=== PATIENT | female | born 1955 | race Caucasian/White ===

== ENCOUNTER → 2019-12-08 | Outpatient (REF) | payer OTHER | LOC: M LAB REF 13:50 | PROVIDERS: ATTEND Internal Medicine | DX: H66.91 Otitis media, unspecified, right ear (principal) ==

== ENCOUNTER → 2020-03-16 | Outpatient (CLI) | payer BC, OTHER ==
--- NOTE | 2020-03-16 16:28 | REPVR ---
PROCEDURE INFORMATION: Exam: CT Temporal Bones Without Contrast. Exam date and time: 03/16/2020 3:07 PM Age: 64 years old Clinical indication: Other: Otitis; Additional info: Otalgia/ otitis externa RT ear TECHNIQUE: Imaging protocol: Computed tomography images of the temporal bones without contrast. Radiation optimization: All CT scans at this facility use at least one of these dose optimization techniques: automated exposure control; mA and/or kV adjustment per patient size (includes targeted exams where dose is matched to clinical indication); or iterative reconstruction. COMPARISON: No relevant prior studies available. FINDINGS: Right inner ear: Normal. Right ossicles and middle ear: The middle ear ossicles appear intact however the bony erosion of the anterior margin of the middle ear cavity is replaced by soft tissue density material which extends to the anterior margin of the head of the malleus, series 202 images 44-47. The remainder of the right middle ear cavity is clear. Right external auditory canal: Soft tissue density material fills the anterior and deep margins of the external auditory canal. Right facial nerve canal: Normal. Right jugular foramen: No jugular dehiscence. Right carotid canal: No aberrent carotid canal; no bony erosion. Right mastoid air cells: Soft tissue density material in the anterior, superior mastoid air cells which are eroded. Right temporomandibular joint: There is bony erosion of the temporal portion of the temporomandibular joint on the right which also forms the bony anterior margin of the right external auditory canal and extends into the petrous portion of the right temporal bone involving the anterior, superior mastoid air cells and anterior margin of the right middle ear cavity and eroding into the inferior right middle cranial fossa. Left inner ear: Normal. Left ossicles and middle ear: Normal. The middle ear ossicles are intact. Left external auditory canal: Normal. Left facial nerve canal: Normal. Left jugular foramen: No jugular dehiscence. Left carotid canal: No aberrent carotid canal. Left mastoid air cells: Normal. No mastoid effusions. There are several calcifications within or adjacent to the cartilage of both ears. There is soft tissue stranding in the right perirectal air region and external auditory canal IMPRESSION: There is extensive erosion of the temporal bone including posterior margin of the right temporomandibular joint/anterior margin external auditory canal and the petrous portion with extension into the inferior lateral right middle cranial fossa. The right ossicles are not eroded however abnormal soft tissue density material appears directly adjacent to the anterior margin of the head of the malleus filling the anterior aspect of the right middle ear cavity. Soft tissue density material fills the anterior superior right mastoid air cells which are eroded. Findings are most likely due to infection however tumor is within the differential. Due to lack of intravenous contrast possible involvement of the right temporal lobe is not well assessed. Electronically signed by: Sheri Rodríguez On 03/16/2020 16:27:55 PM
== END ==
LOC: M RAD 14:51
PROVIDERS: ATTEND Specialist
DX: R93.89 Abnormal findings on diagnostic imaging of other specified body structures (principal); H92.01 Otalgia, right ear; H60.91 Unspecified otitis externa, right ear

== ENCOUNTER → 2020-03-22 | Outpatient (REF) | payer OTHER | LOC: M LAB REF 12:04 | PROVIDERS: ATTEND Specialist | DX: H60.91 Unspecified otitis externa, right ear (principal) ==

== ENCOUNTER → 2020-04-08 | Outpatient (CLI) | payer BC, OTHER ==
[~2020-04-08] MED LIST: PROHANCE 279.3MG/ML 15ML VIAL As Ordered ONE
--- NOTE | 2020-04-08 17:08 | REPVR ---
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 Contrast material: PROHANCE; Contrast volume: 13 ml; Contrast route: 22G; COMPARISON: CT IAC W/O CONTRAST 03/16/2020 3:16 PM FINDINGS: Brain: No restricted diffusion is seen to suggest acute infarction. There is no acute intracranial hemorrhage, cerebral edema, mass effect, or midline shift. Age-related cerebral and cerebellar substance loss is present. Scattered increased T2 and FLAIR signal within the periventricular and subcortical white matter is present. This is nonspecific but likely related to chronic microangiopathic ischemic change. Ventricles: No hydrocephalus. Bones/joints: As noted on the recent temporal bone CT, there is a destructive process centered around the right temporomandibular joint. Infection is favored, but malignancy is not excluded. Fine bony detail in this area is better visualized on the CT. Dehiscence of the bone the right temporomandibular joint from the right middle cranial fossa is present. Enhancing soft tissue is noted within this area. Mild dural and leptomeningeal enhancement is noted along the undersurface of the right temporal lobe. There is no seated parenchymal enhancement or edema. Soft tissues: A nonspecific enhancing 15 mm mass is noted along the inferior medial aspect of the left parotid gland. Additionally, there is a 13 mm enhancing lesion within the deep right parotid gland. Benign and malignant parotid tumors are possible. Sinuses: Normal as visualized. No acute sinusitis. Mastoid air cells: Normal as visualized. No mastoid effusion. Orbits: Unremarkable. IMPRESSION: 1. Destructive process centered around the right temporomandibular joint. Infection is favored. Malignancy is less likely. Minor intracranial extension is present. Dural and leptomeningeal enhancement is noted along the undersurface of the right temporal lobe. 2. Nonspecific bilateral parotid masses. Benign and malignant parotid tumors are possible. Electronically signed by: John Ching On 04/08/2020 17:07:31 PM
== END ==
LOC: M RAD 14:44
PROVIDERS: ATTEND Otolaryngology
DX: K11.8 Other diseases of salivary glands (principal); H92.11 Otorrhea, right ear; C41.0 Malignant neoplasm of bones of skull and face
CPT/HCPCS: 70553; A9576

== ENCOUNTER → 2020-11-30 | Outpatient (CLI) | payer BC, OTHER ==
--- NOTE | 2020-11-30 15:35 | REP ---
INDICATION: CANCER OF THE EAR. 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 COMPARISON: Comparison MRI study is from April 08, 2020. Comparison CT study is from March 16, 2020.. TECHNIQUE: Pre and postcontrast MR imaging is included. Thin sections are obtained through the petrous bones and posterior fossa with T1 and T2 weighted sequences include spin echo, turbo spin echo, FLAIR, diffusion-weighted scans, and thin section gradient echo sequences. Postcontrast imaging is performed in all 3 planes. The gadolinium enhancement dose is 11 mL of intravenous ProHance. FINDINGS: In the interval since the prior exams, the patient has undergone extensive resection. This apparently includes right parotidectomy, partial mastoidectomy and resection of the external auditory canal on the right and apparently, portion of the right temporal bone and floor of the right middle cranial fossa. There is transplanted fatty tissue at the operative site. The right mandibular condyle was resected as well. There is micrometallic artifact adjacent to the mandibular condylar resection margin and at the level of the remaining right temporalis and masseter muscles. The remaining right mastoid air cells are filled with intermediate signal intensity material. The internal auditory canals are unremarkable and symmetric. The vestibular and cochlear apparatus are unremarkable bilaterally. It appears that the middle ear structures have been resected on the right. No other evidence of bone destruction is seen. No right-sided mass effect is observed. There is again noted to be a heterogeneously enhancing mass in the left parotid gland. This measures 2.4 cm craniocaudal by 1.8 cm medial to lateral by 1.4 cm anterior to posterior. Postcontrast imaging shows no vascular abnormality. Sigmoid sinuses appear patent bilaterally. No abnormal intracranial contrast enhancement is seen to suggest metastatic disease. Subcortical and periventricular white matter T2 hyperintensities persist consistent with small-vessel atherosclerotic change. Diffusion-weighted scans show no evidence of restricted diffusion to suggest acute ischemia, abscess, or neoplastic restricted diffusion. No intraorbital abnormality is seen. IMPRESSION: Extensive postoperative changes on the right as noted above. No evidence of residual or recurrent neoplasm. Soft no evidence of intracranial metastatic disease. Small vessel atherosclerotic changes. Persistent left parotid mass lesion consistent with benign or malignant etiologies. <Electronically signed by Diomedes Flores > 11/30/20 [id number]
== END ==
LOC: M RAD 12:31
DX: Z85.828 Personal history of other malignant neoplasm of skin (principal)
CPT/HCPCS: 70553; A9576

== ENCOUNTER → 2021-01-06 | Outpatient (REF) | payer OTHER | LOC: M LAB REF 16:26 | PROVIDERS: ATTEND Internal Medicine | DX: C44.222 Squamous cell carcinoma of skin of right ear and external auricular canal (principal) ==

== ENCOUNTER 2021-03-16 08:00 | Inpatient (IN) | payer BC, OTHER ==
[2021-03-16] VITALS (29 sets, daily range): BP systolic 121–144; BP diastolic 55–87
[~2021-03-16] VITALS: Ht 162.6 cm; Wt 49.4 kg
--- NOTE | 2021-03-16 08:19 | REP ---
INDICATION: DYSPNEA/COUGH COMPARISON: None. TECHNIQUE: Portable AP view of the chest FINDINGS: Large bilateral pneumothoraces. Cardiac silhouette is normal. [id number] identified with tip in the SVC. Skeletal structures are intact. IMPRESSION: Large bilateral pneumothoraces (right greater than left). ER notified. <Electronically signed by Richard Beyer > 03/16/21 [id number]
[2021-03-16] MEDS ORDERED: LEVALBUTEROL 1.25 MG/0.5 ML CONCENTRATE NEB NEB PRN (08:25)
[2021-03-16] MEDS ORDERED: BISACODYL 10 MG SUPP PR PRN (08:25)
[2021-03-16] MEDS ORDERED: PERCOCET 5MG/325MG TAB PO PRN ×2 (08:25)
[2021-03-16] MEDS ORDERED: ONDANSETRON 4MG/2ML VIAL IV PRN (08:25)
[2021-03-16 08:28] LABS: ABG BASE EXCESS -3.1 (-2.0-2.0); ABG HCO3 25.2 MEQ/L (22.0-26.0); ABG O2 SATURATION 98.3 % (95.0-99.0); ABG PARTIAL PRESSURE O2 127.6 mmHg (75.0-100.0); ABG STANDARD HCO3 21.9 MEQ/L (22.0-26.0)
[2021-03-16 08:31] LABS: ABG PARTIAL PRESSURE CO2 60.1 mmHg (35.0-45.0)
[2021-03-16] MEDS ORDERED: BENZ-18 PO (08:35)
[2021-03-16] MEDS ORDERED: HYDR-4571 PO (08:35)
[2021-03-16] MEDS ORDERED: AMOX875T2 PO (08:35)
[2021-03-16 08:43] LABS: BASO # 0.1 10^3/uL (0.0-0.2); BASO % 0.4 % (0.0-1.0); EOS # 0.7 10^3/uL (0.0-0.5); EOS % 3.4 % (0.0-3.0); HEMATOCRIT 36.5 % (36.0-47.0); HEMOGLOBIN 11.6 g/dl (12.0-15.5); LYMPH # 2.1 10^3/uL (1.5-5.0); LYMPH % 10.4 % (24.0-44.0); MEAN CORPUSCULAR HEMOGLOBIN 29.7 pg (27.0-33.0); MEAN CORPUSCULAR HGB CONC 31.8 g/dl (32.0-36.5); MEAN CORPUSCULAR VOLUME 93.6 fl (80.0-96.0); MONO # 0.9 10^3/uL (0.0-0.8); MONO % 4.3 % (2.0-8.0); NEUTROPHILS # 16.3 10^3/uL (1.5-8.5); NEUTROPHILS % 80.7 % (36.0-66.0); PLATELET COUNT, AUTOMATED 452 10^3/uL (150-450); WHITE BLOOD COUNT 20.2 10^3/uL (4.0-10.0)
--- NOTE | 2021-03-16 08:44 | REP ---
INDICATION: pneumothroax COMPARISON: None TECHNIQUE: Axial noncontrast images from the thoracic inlet to the upper abdomen with coronal and sagittal reformations. This CT examination was performed using the following dose reduction techniques: Automated exposure control, adjustment of mA and/or kv according to the patient's size, and use of iterative reconstruction technique. FINDINGS: Large bilateral pneumothoraces of roughly 60-75% are appreciated. There is associated lower lobe atelectasis along with partial collapse to the right lower lobe and small pleural effusions (right greater than left). Visualized tracheobronchial tree is relatively well aerated. The mediastinum demonstrates essentially normal age-appropriate thoracic aorta and heart/pericardium midline within the thorax. The osseous structures appear intact. [id number] identified with tip in the SVC. IMPRESSION: Large bilateral pneumothoraces with parenchymal changes as described above. <Electronically signed by Richard Beyer > 03/16/21 [id number]
[2021-03-16 08:53] LABS: INR 0.98; PROTHROMBIN TIME 13.2 SECONDS (12.5-14.3)
[2021-03-16 09:14] LABS: ABG BASE EXCESS -4.3 (-2.0-2.0); ABG HCO3 26.8 MEQ/L (22.0-26.0); ABG O2 SATURATION 78.2 % (95.0-99.0); ABG STANDARD HCO3 20.5 MEQ/L (22.0-26.0); ABG TOTAL CO2 29.5 MEQ/L (23.0-31.0)
[2021-03-16 09:15] LABS: ALBUMIN 3.4 GM/DL (3.2-5.2); BILIRUBIN,DIRECT 0.2 MG/DL (0.0-0.2); BILIRUBIN,TOTAL 0.5 MG/DL (0.2-1.0); THYROID STIMULATING HORMONE 1.25 uIU/ML (0.358-3.740); TOTAL PROTEIN 7.7 GM/DL (6.4-8.2)
[2021-03-16] MEDS ORDERED: ETOMIDATE INJ 20MG/10ML VIAL As Ordered ONE (09:15)
[2021-03-16 09:16] LABS: ABG pH (ARTERIAL) 7.112 UNITS (7.350-7.450)
[2021-03-16] MEDS ORDERED: ROCURONIUM BROMIDE 50 MG/5 ML VIAL As Ordered ONE (09:16)
--- NOTE | 2021-03-16 09:39 | REP ---
INDICATION: Chest tube COMPARISON: 03/16/2021 at 8:07 a.m. TECHNIQUE: Portable AP view of the chest FINDINGS: Bilateral chest tubes have been subsequently placed and previously noted large pneumothoraces demonstrate near complete re-expansion. Underlying chronic interstitial changes are suggested along with residual basilar atelectasis (right greater than left). The mediastinum and cardiac silhouette are within normal limits and stable. [id number] identified with tip in the right atrium. Skeletal structures appear intact. IMPRESSION: 1. Near complete re-expansion to the bilateral pneumothoraces with mild basilar atelectasis (right greater than left). 2. Underlying chronic interstitial changes. <Electronically signed by Richard Beyer > 03/16/21 [id number]
[2021-03-16 09:44] LABS: ABG BASE EXCESS -1.8 (-2.0-2.0); ABG HCO3 25.6 MEQ/L (22.0-26.0); ABG O2 SATURATION 99.8 % (95.0-99.0); ABG PARTIAL PRESSURE O2 226.5 mmHg (75.0-100.0); ABG TOTAL CO2 27.3 MEQ/L (23.0-31.0); ABG pH (ARTERIAL) 7.278 UNITS (7.350-7.450)
[2021-03-16] MEDS: KCL 20MEQ IN D5/NS 1000ML 1,000 ML IV SCH ×2 (10:07→22:00)
[2021-03-16] MEDS: KETOROLAC 30 MG/ML 1ML VIAL IV SCH ×3 (10:08→21:54)
[2021-03-16] MEDS: HEPARIN SOD (PORCINE) 5000UNITS/ML 1ML VIAL/SYRINGE SC SCH ×2 (10:08→21:54)
[2021-03-16] MEDS: DOCUSATE SODIUM 100MG CAPSULE PO SCH ×2 (10:19→21:55)
[2021-03-16] MEDS: PANTOPRAZOLE 40MG TAB (PROTONIX) PO SCH (10:19)
[2021-03-16] MEDS ORDERED: MIDAZOLAM INJ 2MG/2ML VIAL (J2250 PER 1MG) IV ONE (10:45)
[2021-03-16] MEDS ORDERED: VANCOMYCIN HCL 1,000 MG, VIAL MATE ADAPTER 1 EACH in NS 250 ML IV SCH (10:45)
[2021-03-16] MEDS ORDERED: LIDOCAINE 1% MDV 20ML VIAL SC ONE (10:45)
--- NOTE | 2021-03-16 11:19 | CCN ---
CRITICAL CARE NOTE DATE: 03/16/2021 SUBJECTIVE: I noticed an emergent situation in the ICU as I was visiting another patient. I presented to the room to see if help was needed. The patient had been brought up to the ICU with bilateral pneumothoraces and severe hypoxia. Dr. Carrillo was placing a chest tube on the right. I then went to the head of the bed and bagged the patient. She did appear slightly agonal, but just received Versed. With bagging and placement of the right chest tube, oxygen saturations went from 66, 77, to low 90 percent. The patient was breathing and I was assisting her breaths with bag mask ventilation. At that point time, it was deciding whether or not to intubate the patient. Left chest tube was placed with ease. After this, the patient had improved breathing and started to have better mentation. I have obtained a blood gas, which does show improvement from her pre-chest tube to 729, pCO2 of 56, pO2 of 226. Now, she is awake, alert, and conversant. I had a discussion with her son, Edy, as her other son Hay who she lives with and is next of kin is in [place]; according to Edy. The patient was recently in the hospital two weeks ago for what they described as a skull fracture repair; what sounds like a CSF leak at [facility]. She has been receiving her cancer care at [facility]. She has had a known malignancy starting in the right ear area. There is extensive destruction TMJ, petrous bone, and most recently very abnormal MRI from November. The patient has been having chronic back pain with a concern for metastatic disease to the back. According to the patient's son, the patient has renal mets. The patient was diagnosed this past October with a primary lung cancer. The patient is a lifetime nonsmoker. This was also a squamous cell carcinoma. The patient has no diabetes, but I was instructed that the head of the bed should be elevated to decrease intracranial pressure along with control of blood pressure. PHYSICAL EXAMINATION: GENERAL APPEARANCE: The patient herself after going back to her bedside is more conversant. She feels cold and she is having pain in the chest. No headache. No change in her usual vision. HEENT: There is a right frontal parietal sutured area without evidence of erythema or infection. Skin is withdrawn. Significant bitemporal wasting. Does appear that she is slightly flaccid on the left. Tongue is midline with protrusion. Oropharynx without erythema or exudate. NECK: Supple. No tracheal deviation or mass. LYMPHATIC: No cervical, supraclavicular, or axillary adenopathy. CHEST: Right chest wall Infusaport is in place. Bilateral chest tubes in place without surrounding erythema or exudate. No significant subcutaneous emphysema. Bilateral breaths without obvious mass. CARDIAC: Regular S1, S2 without audible murmur, rub, or gallop. No elevated JVP. No peripheral edema. PULMONARY: Better air entry bilaterally. No rales, rhonchi, or wheezes. No dullness to percussion. No accessory muscle use at this point in time. ABDOMEN: Soft, scaphoid, and nontender. There is a subcutaneous lesion most likely metastatic disease. EXTREMITIES: No cyanosis or clubbing. SKIN: No rashes, jaundice, or bruising. LABORATORY DATA: Shows a leukocytosis of 20.2, hemoglobin of 11.6, platelet count of 452,000, neutrophilia of 81. Lactic acid of 1.7. BNP of 659. Arterial blood gas as mentioned above. BMP is not resulted as of yet. IMPRESSION/PLAN: 1. A 65-year-old female with severe hypoxia and reason for my need for critical management. Will continue to monitor for further respiratory failure. Did also have hypercarbic respiratory failure, which is improving. Now that a chest tube is in place and she is more alert, I believe this will likely improve over time; however, requires critical monitoring and she has a high risk of requiring intubation. 2. Hypertension. Will attempt to control this to prevent increased intracranial pressures. The patient will have p.r.n. hydralazine for systolic blood pressure greater than 170. 3. As far as her back pain, the patient already has oral pain medication written. Will continue to reevaluate her pain needs. 4. Leukocytosis. Recent intracranial procedure. Will cover with vancomycin and ceftazidime. No evidence of sepsis or shock at this point in time. Leukocytosis could simply be caused by the recent acute life-threatening event. 5. Deep vein thrombosis (DVT) prophylaxis. High risk for DVT given her history of malignancy. 6. Gastrointestinal (GI) prophylaxis with Protonix. 7. Protein-calorie malnourishment. Will attempt to encourage p.o. intake when the patient is able to safely. The patient remains critically ill with a very poor prognosis. We will need to rediscuss the patient's prognosis when family presents.
[2021-03-16 11:59] LABS: BLOOD UREA NITROGEN 16 MG/DL (7-18); CALCIUM LEVEL 10.5 MG/DL (8.8-10.2); CARBON DIOXIDE LEVEL 29 MEQ/L (21-32); CHLORIDE LEVEL 102 MEQ/L (98-107); CREATININE FOR GFR 0.75 MG/DL (0.55-1.30); GLOMERULAR FILTRATION RATE > 60.0 (>45); GLUCOSE, FASTING 148 MG/DL (70-100); POTASSIUM SERUM 4.5 MEQ/L (3.5-5.1); SODIUM LEVEL 137 MEQ/L (136-145)
[2021-03-16] MEDS ORDERED: cefTRIAXone SOD 2 GM in D5W MINI-BAG PLUS 50 ML IV SCH (12:00)
--- NOTE | 2021-03-16 12:09 | RO ---
OPERATIVE NOTE DATE OF OPERATION: 03/16/2021 PREOPERATIVE DIAGNOSES: 1. Bilateral pneumothoraces. 2. Respiratory failure. 3. Hypoxia. POSTOPERATIVE DIAGNOSES: 1. Bilateral pneumothoraces. 2. Respiratory failure. 3. Hypoxia. PROCEDURE: Insertion of left anterior-superior chest tube. SURGEON: Dr. Marv Carrillo DESCRIPTION OF PROCEDURE: Under satisfactory moderate sedation achieved with 2 mg of Versed, patient was prepped and draped in the usual sterile fashion. The 1st intercostal space above the 2nd rib was infiltrated with 1% lidocaine down to the pleura. Incision was made, and a tunnel was created in the chest without difficulty. A #20 chest tube was placed without difficulty and secured to the chest wall with #2 Tevdek suture and connected to the Pleur-evac. The right side pneumothorax had already been addressed with a chest tube. After placing the chest tube, her oxygen saturation evelio to the low 90s. Patient tolerated the procedure well, and a chest x-ray is pending.
[2021-03-16] MEDS: MOM 30ML SUSPENSION UDC PO SCH (12:32)
[2021-03-16] MEDS: hydrALAZINE 20MG/ML 1ML VIAL (J0360 PER 20MG) IV SCH ×2 (12:34→18:14)
--- NOTE | 2021-03-16 12:35 | CR ---
CONSULTATION DATE: 03/16/2021 Patient is seen at the urgent request of Dr. Carpio of the emergency room for bilateral pneumothoraces. Patient was transferred to the intensive care unit, and by the time I arrived in the room she was in near respiratory failure with saturations of 65. It was clear that she had bilateral pneumothoraces, and therefore immediately two chest tubes were placed with resolution of the pneumothoraces and resolution of her respiratory failure and hypoxia. History was obtained after the chest tubes were placed. Patient is a 65-year-old white female who obtains all of her care at [facility]. Evidently, last March she was found to have external ear squamous cell carcinoma and underwent an extensive resection of her external ear to temporal bone parotidectomy and her mandible. That occurred in April. This was then followed by chemotherapy and radiation, and it was later discovered that she had a squamous cell carcinoma of her left lung. The external ear cancer was on the right side. She then developed a salty taste in her mouth and was found to have a cerebrospinal fluid (CSF) leak and underwent a craniotomy with repair of her dura and the frontal sinus. She was discharged only a few days ago from [facility]. One of her presenting symptoms at [facility] was nausea and vomiting. This morning she had dry heaves and then suddenly became short of breath. She was brought to the emergency room by emergency medical services (EMS) and was found to have the bilateral pneumothoraces. MEDICAL HISTORY: The lung cancer. She denies diabetes or heart disease. SURGICAL HISTORY: See history of present illness (HPI). HABITS: Does not smoke and has never smoked. Does not imbibe alcohol. No elicit drugs. TRAVEL HISTORY: Not obtained. OCCUPATIONAL HISTORY: Not obtained. EXPOSURES: Not obtained. REVIEW OF SYSTEMS: Not obtained. PHYSICAL EXAMINATION: Physical examination was done after placement of her chest tubes. Prior to the chest tubes being placed, she was cyanotic, hypoxic but hypertensive. Vital signs before the tubes showed a temperature of 97.6 with a heart rate of 117, respiratory rate of 38 with the use of accessory muscles but becoming agonal and near apneic. She was 65% saturated on non-rebreather with a blood pressure of 180/109. After placement of the chest tubes, her vital signs showed blood pressure of 122/58 with a heart rate of 106 and 99% saturated on 4 liters nasal cannula. Eyes: Pupils equal, round, and reactive to light. Extraocular movements intact. Sclerae anicteric. Nose without deformity. Mouth shows the mucous membranes to be pink and moist. Lips and commissures without lesions. There is no thrush. She has a facial droop on the right. Neck is supple. There is no subcutaneous emphysema. Trachea is midline. Lung sounds after placement of the chest tubes showed equal breath sounds on either side with some expiratory wheezing but quite faint. Percussion note was full to the diaphragm on either side. Cardiac exam was without murmurs, clicks, gallops, or rubs. I cannot feel her point of maximal impulse (PMI). S1 and S2 are normal. Abdomen is soft, nontender. Bowel sounds are hypoactive but present. The abdomen also shows a hard but moveable subcutaneous nodule in the right lower quadrant, which is nontender. Extremities show no pretibial edema. No calf tenderness. No differential swelling of the upper extremities. Skin after placement of the chest tubes and recovered from her respiratory distress was warm, dry, and perfused. Neurologic shows gross motor, gross sensation intact. Gross II-XII are also intact. She has a facial drop secondary to her surgery. There is a large fresh incision over her frontal cranium with sutures in place. Psychiatric shows her to be awake and alert. INVESTIGATIONS: White count is 20.2 with a hemoglobin and hematocrit of 11.6 and 36.5 with a platelet count of 452. Differential shows 80% neutrophils, 10% lymphocytes, 4% monocytes. There are no immature forms or toxic granulations. Her electrolytes are normal with a BUN and creatinine of 15 and 0.6 with a glucose of 186. Initial blood gas shows a pH of 7.24 with a pCO2 of 60 and a pO2 of 127, which was repeated just prior to her chest tube insertion, which showed a pH of 7.11, a pCO2 of 86, and a pO2 of 58. After the chest tube insertion, the pH was 7.27 with a pCO2 of 56 and pO2 of 226 on the above oxygen. Her chest x-ray shows bilateral pneumothoraces, which is confirmed on CT. IMPRESSION: 1. Spontaneous bilateral pneumothoraces secondary to increasing thoracic pressure from vomiting. 2. 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 3. 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 4. Agonal respiratory failure. Received two bilateral chest tubes. PLAN AND DISCUSSION: The emergent situation has been resolved with the chest tubes. There is no air leak from the chest tubes at this point in time. I suspect her bilateral pneumothoraces were caused by increase in her thoracic pressure from vomiting. She presented to [facility] with vomiting, which then showed her to have pneumocephalus, for which she underwent an open dural repair. It looks as though she has diffuse metastasis to her kidneys, subcutaneous tissue, and probable bone, as she complains of back pain. As she receives all of her care in [place] and as she had another bout of dry heaves today, it would not be unreasonable to transfer her to [facility] ([facility] for continued management of her diffuse metastatic disease and her underlying neurologic problems. The question as to her continued vomiting is pertinent to her neurologic status in that she may have increased intracranial pressure. This would be more appropriately managed at [facility].
--- NOTE | 2021-03-16 12:49 | RO ---
OPERATIVE NOTE DATE OF OPERATION: 03/16/2021 PREOPERATIVE DIAGNOSES: 1. Bilateral pneumothoraces. 2. Acute respiratory failure. 3. Severe hypoxia. POSTOPERATIVE DIAGNOSES: 1. Bilateral pneumothoraces. 2. Acute respiratory failure. 3. Severe hypoxia. PROCEDURE: Insertion of right posterolateral chest tube. SURGEON: Dr. Marv Carrillo DESCRIPTION OF PROCEDURE: Under satisfactory moderate sedation achieved with 2 mg of Versed, at the approximate 5th intercostal space above the 6th rib was infiltrated with 1% lidocaine down to the pleura. Incision was made, and a tunnel was created in the chest without difficulty. A #20 chest tube was placed, aimed anteriorly. It was connected to a Pleur-evac and secured to the chest wall with a #2 Tevdek suture. I elected to place the tube posterolaterally, and she had an [id number] on the anterior right chest wall. Patient tolerated the procedure well, and preparations were made for the second chest tube on the left side.
[2021-03-16] MEDS: LEVALBUTEROL 1.25 MG/0.5 ML CONCENTRATE NEB NEB SCH ×3 (13:34→20:04)
--- NOTE | 2021-03-16 13:38 | REP ---
INDICATION: recent intracranial surgery, n/v. COMPARISON: None. TECHNIQUE: Axial CT images with multiplanar reformations. FINDINGS: There is evidence of recent resection, right temporal area with tissue loss and pneumocephalus in the resection cavity. There is also pneumocephalus over the right hemisphere with evidence of a right frontal craniotomy. The craniotomy flap in position over the right frontal region. No hemorrhage. There is minimal subdural collection over the right frontal area, measures perhaps 2-3 mm. There is mild hgizq-ly-[id number] midline shift. Ventricular size within normal limits. Paranasal sinuses are clear. The right mastoid is opacified, the left is fully aerated. IMPRESSION: Evidence of recent surgery, right temporal resection cavity and pneumocephalus as described. No hemorrhage. <Electronically signed by Tyler Cheng > 03/16/21 [id number]
[2021-03-16] MEDS: NORCO, ANEXSIA 5/325MG TABLET (HYDROcodone/ACETAMINOPHEN) PO PRN (13:53)
[2021-03-16] MEDS ORDERED: VANCOMYCIN HCL 750 MG, VIAL MATE ADAPTER 1 EACH in NS 250 ML IV ONE (15:00)
--- NOTE | 2021-03-16 15:08 | HPEPDOC ---
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 There was ultimately extensive extension and destruction of the temporal area, external ear canal requiring resection. She states she had significant neurological damage due to the surgery which left her with right- sided facial droop. She has also had several doses of chemotherapy and radiation through her oncology group in [place]. She was diagnosed with a subdural hematoma in January 2021 which was later evacuated. She had an existing mass on her frontal for head which was believed to have eroded through the forehead causing air to accumulate intracranially. There was also a fracture believed to be secondary to malignancy which formed as well. This was monitored for some time by ENT and neurosurgical service but on 03/05/2021 it was decided neurosurgery was needed. She was later discharged on or 03/08/21 home to follow- up with her oncology specialists and neurosurgery at a later time. During her last hospitalization she states she was treated for a pneumonia as inpatient and later discharged with oral antibiotics. Over the past week she's noticed increased shortness of breath, nonproductive cough, increased lethargy, increased weakness but denies fevers, chills, abdominal pain, vomiting, diarrhea, chest pain. Shortness of breath was worse with exertion and there was no relief at home. This is when she decided to come to the ER for further evaluation. In the ER, the patient was in moderate distress. Vital signs showed sinus tachycardia heart rate 209171, respiratory rate 2438, blood pressure 293859/[id number], afebrile, saturating in the 60's on room air. She was placed on nonrebreather and was saturating at 90% on 15L. Initial ABG showed acidosis; however, second ABG showed worsening acidosis with a pH of 7.112, PCO2 86, PO2 58, O2 saturation of 78.2. Imaging was suspicious for bilateral pneumothoraces. CT of the chest confirmed bilateral pneumothoraces. The patient was transferred to ICU and thoracic surgery was consulted for emergent chest tube placement. During placement of the right-sided chest tube in the ICU the patient appeared to have agonal breathing status post versed. Critical care was at bedside and began to bag the patient, xygen saturations ranging to 66-77% on NRB. After the first chest tube was done, agonal breathing improved some; however, she still remained hypoxic. After placement of the second chest tube on the left side, oxygen saturation improved even more so to above 90%. She had improved breathing and ABG showed improvement. WBC 20K, blood cultures and UCx were ordered. She was started on broad spectrum abx to cover intracranial infection, ? PNA. Quickly after chest tube placement b/l, she was more awake and alert. Heart rate and blood pressure improved dramatically. Repeat chest x-ray showed near complete re-expansion to the bilateral pneumothoraces with mild basilar atelectasis (right greater than left), underlying chronic interstitial changes. Ultimately, patient was admitted to ICU for acute hypoxic and hypercarbic re spiratory failure 2/2 to bilateral pneumothoraces requiring chest tube placement, hypertensive urgency. Note: Patient has a very complicated medical oncology/surgical history. We are currently requesting records from [facility] to confirm and update our medical history. REVIEW OF SYSTEMS: Neg except mentioned above PAST MEDICAL HISTORY: Metastatic small cell carcinoma of the right ear (to temporal bone, frontal lobe, chest, kidney and questionable abdomen) diagnosed 01/2020, s/p chemothera py, radiation Chronic pain questionably secondary to back metastasis PAST SURGICAL HISTORY: Right ear canal, temporal bone resection 04/2020 Subdural hematoma evacuation 01/2021 Neurosurgery for intracranial air, forehead mass imposing cranial fx 03/05/21- 03/08/21 Port placement right upper chest FAMILY HISTORY: Father: breast cancer. at 78 y/o Mother: Brain aneurysm. at 57 y/o SOCIAL HISTORY: Remote history of smoking 2-3 years >30 years ago. Denies alcohol or drug use. Lives with friends locally. HCP is shared between her three sons. PCP: Dottie Pina, Oncologist: Dr. Rossi, Neurosurgeon: Dr. Franklin. Radiation oncologist: Dr. Cazares. She is a full code. ALLERGIES: Please see below. HOME MEDICATIONS: Please see below. PHYSICAL EXAMINATION: VS currently in the ICU : 98.7, HR 96-101, RR 16-18, 98% on 2 L NC CONSTITUTIONAL: No acute distress, resting comfortably, AAO x 3 EYES: PERRLA, EOM intact HENT, MOUTH: large right forehead/frontal incision, well healing, moist mucous membranes NECK: SUPPLE, no JVD, no lymphadenopathy, no carotid bruit CV: sinus tachycardia, S1S2 normal, no murmurs/rubs/gallops CHEST: left anterior chest tube to bedside canister, right chest tube to cannister to suction. right upper chest port RESPIRATORY: Clear to auscultation bilaterally, no rales/rhonchi/wheezes GI: RLQ mass felt on exam, BS positive in 4 quadrants, soft, nontender, nondistended, no rebound or guarding : Deferred MUSCULOSKELETAL: Normal ROM. No cyanosis, clubbing, swelling, joint deformity, extremity edema INTEGUMENTARY: forehead incision described above otherwise other cranial scars appear well healed. No rashes, no lesions, no erythema NEUROLOGIC: Right side facial droop- chronic, no new focal deficits, strength 5/5 in all extremities PSYCHIATRIC: Mood and affect are normal LABORATORY DATA: Please see below IMAGING: CXR taken s/p bilateral chest tube placement: 1. Near complete re-expansion to the bilateral pneumothoraces with mild basilar atelectasis (right greater than left). 2. Underlying chronic interstitial changes. CT chest prior to chest tube placements: Large bilateral pneumothoraces with parenchymal changes as described above. CT head: There is evidence of recent resection, right temporal area with tissue loss and pneumocephalus in the resection cavity. There is also pneumocephalus over the right hemisphere with evidence of a right frontal craniotomy. The craniotomy flap in position over the right frontal region. No hemorrhage. There is minimal subdural collection over the right frontal area, measures perhaps 2-3 mm. There is mild nteyz-ng-[id number] midline shift. Ventricular size within normal limits. Paranasal sinuses are clear. The right mastoid is opacified, the left is fully aerated. 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 PLAN: Acute hypoxic and hypercarbic respiratory failure 2/2 to bilateral pneumothoraces -S/p bilateral chest tube placement, currently to section -Saturating 95% on 2 L NC -Improving ABG and CXR (see above) -C/w chest tubes, O2 supplementation, pain control, IS Q2 hrs while awake, close observation in ICU -F/u imaging in AM -Dr. Carrillo (CT surgery) following Hypertensive urgency (resolved) likely 2/2 to acute lung issues above -BP [id number] in ER, currently stable at 134/86 -Monitor closely Leukocytosis r/o HCAP (recently was treated for inpatient PNA, multiple hospitalizations over past several months) vs. intracranial infection (recent neurosurgery) vs. reactive to respiratory issue above, SIRS+ -WBC 20K, tachycardia, afebrile, LA wnl -F/u UA, BCX, daily CBC, procalcitonin. If procalcitonin neg, can likely d/c abx -Resp panel neg -Broad spectrum abx coverage with Ceftriaxone, Vancomycin -Tele Minimal subdural collection over the right frontal area, measures perhaps 2-3 mm. (seen on CT head), midline shift mentioned above -S/p neurosurgery 03/05/21 -Discussed these results with Dr. Morales (neurosurgery) at [facility] over phone consultation on 03/16/21. He states this is likely normal findings s/p neurosurgery. States it can take several weeks for blood and air to be reabsorbed. -Patient is currently AAOx 3, no new focal deficits, no n/v currently after resolution of respiratory issue -Continue to monitor and if s/s increase, occur suspicious for incr intracranial pressure, bleed then to address immediately -Will need to f/u with neurosurgery as o/p as previously scheduled. Metastatic small cell carcinoma of the right ear (to temporal bone, frontal lobe, chest, ?kidney and ? abdomen) diagnosed 01/2020, s/p chemotherapy, radiation -S/p radiation, chemotherapy, discussing immunotherapy recently per patient -See above under "social history" for list of oncology/radiation specialists -Most recently concern has been for ? kidney metastasis -f/u records from [facility] requested today Chronic pain questionably secondary to back metastasis -No documented vertebral mets -C/w pain regimen Hypercalcemia likely 2/2 to metastatic disease -Monitor with daily CMP GI px -PPI DVT px -Heparin SC. If patient will be needing boluses or therapeutic dosing at any point this hospitalization, do not right away and consider reevaluation of subdural collection in frontal area seen on CT head. DISPOSITION: Currently admitted under ICU care. CT surgery following/consulted. I did attempt to have patient transferred to [facility], per patient's request; however, at this time there is no medical necessity for transfer. If a transfer was desired, it would be lateral and would need to be run by utilization review and insurance to see if it would even be covered. This was relayed to f merony/patient and the decision was to stay here, coordinate between [facility] services if needed. She remains a full code. TOTAL AMOUNT OF ICU TIME SPENT CARING FOR PATIENT (nonprocedural): 180 mins Vital Signs Vital Signs Date Time Temp Pulse Resp B/P (MAP) Pulse Ox O2 Delivery O2 Flow Rate FiO2 03/16/21 13:53 18 03/16/21 13:30 101 134/86 (102) 98 Nasal Cannula 2.0 03/16/21 12:00 98.7 03/16/21 09:44 100 Laboratory Data Labs 24H Laboratory Tests 2 03/16/21 08:12: Blood Gas Bicarbonate Standard 21.9L, Arterial Blood pH 7.240*L, Arterial Blood Partial Pressure CO2 60.1*H, Arterial Blood Partial Pressure O2 127.6H, Arterial Blood Total CO2 27.0, Arterial Blood HCO3 25.2, Arterial Blood Base Excess - 3.1L, Arterial Blood Oxygen Saturation 98.3 03/16/21 08:22: Immature Granulocyte % (Auto) 0.8, Neutrophils (%) (Auto) 80.7H, Lymphocytes (%) (Auto) 10.4L, Monocytes (%) (Auto) 4.3, Eosinophils (%) (Auto) 3.4H, Basophils (%) (Auto) 0.4, Neutrophils # (Auto) 16.3H, Lymphocytes # (Auto) 2.1, Monocytes # (Auto) 0.9H, Eosinophils # (Auto) 0.7H, Basophils # (Auto) 0.1, Nucleated Red Blood Cells % (auto) 0.0, Prothrombin Time 13.2, Prothromb Time International Ratio 0.98, POC Troponin I (Misc) 0.02, Lactic Acid Level 1.7, Total Bilirubin 0.5, Direct Bilirubin 0.2, Aspartate Amino Transf (AST/SGOT) 75H, Alanine Aminotransferase (ALT/SGPT) 96H, Alkaline Phosphatase 670H, LT-Jcs-T-Type Natriuretic Peptide 649H, Total Protein 7.7, Albumin 3.4, Albumin/Globulin Ratio 0.8L, Thyroid Stimulating Hormone (TSH) 1.250 03/16/21 08:24: POC Glucose (Misc Panel) 186H, POC Sodium (Misc Panel) 135L, POC Potassium (Misc Panel) 3.7, POC Chloride (Misc Panel) 102, POC Total CO2 (Misc Panel) 27.0, POC Blood Urea Nitrogen (Misc Panel 15, POC Ionized Calcium (Misc Panel) 5.0, POC Creatinine (Misc Panel) 0.6, POC Hematocrit (Misc Panel) 38.0 03/16/21 09:00: Blood Gas Bicarbonate Standard 20.5L, Arterial Blood pH 7.112*L, Arterial Blood Partial Pressure CO2 86.0*H, Arterial Blood Partial Pressure O2 58.0L, Arterial Blood Total CO2 29.5, Arterial Blood HCO3 26.8H, Arterial Blood Base Excess - 4.3L, Arterial Blood Oxygen Saturation 78.2L 03/16/21 09:35: Blood Gas Bicarbonate Standard 23.0, Arterial Blood pH 7.278L, Arterial Blood Partial Pressure CO2 56.0H, Arterial Blood Partial Pressure O2 226.5H, Arterial Blood Total CO2 27.3, Arterial Blood HCO3 25.6, Arterial Blood Base Excess -1.8, Arterial Blood Oxygen Saturation 99.8H 03/16/21 11:26: Anion Gap 6L, Glomerular Filtration Rate > 60.0, Calcium Level 10.5H CBC/BMP Laboratory Tests 03/16/21 08:22 03/16/21 11:26 Microbiology Microbiology 03/16/21 Blood Culture, Received Pending 03/16/21 Blood Culture, Received Pending 03/16/21 Respiratory Virus Panel (PCR) (PERI) - Final, Complete 03/16/21 Blood Culture, Received Pending 03/16/21 Blood Culture, Received Pending Home Medications Scheduled Amoxicillin/Potassium Clav (Amox-Clav 875-125 mg Tablet) 1 Each Tablet, 1 TAB PO BID filled 03/07/21 for 10 days Scheduled PRN Benzonatate (Benzonatate) 100 Mg Capsule, 100 MG PO TID PRN for cou Hydrocodone/Acetaminophen (Hydrocodone-Acetamin 5-325 mg) 1 Each Tablet, 1 TAB PO Q4H PRN for PAIN Allergies Coded Allergies: poison prasanna extract (Verified Allergy, Unknown, rash, 03/16/21) A-FIB/CHADSVASC A-FIB History Current/History of A-Fib/PAF?: No Current PO Anticoag Therapy: No Age/Risk Factor Scoring CHADSVASC: CHADSVASC Response (Comments) Value Age Risk Factor Age < 65 years old 0 Gender Risk Factor Female 1 Hx of CHF No 0 Hx of HTN No 0 Hx of Stroke/TIA/or VTE No 0 Hx of Diabetes No 0 Hx of Vascular Disease No 0 Total 1 Treatment Treatment ordered: Other Other anticoagulant ordered: heparin Shirin Hernandez MD Mar 16, 2021 15:08
[2021-03-16] MEDS ORDERED: VANCOMYCIN HCL 500 MG in D5W MINI-BAG PLUS 100 ML IV ONE (16:00)
[2021-03-17] VITALS (7 sets, daily range): BP systolic 125–139; BP diastolic 63–76
[2021-03-17] MEDS: LEVALBUTEROL 1.25 MG/0.5 ML CONCENTRATE NEB NEB SCH ×4 (00:28→19:49)
[2021-03-17] MEDS ORDERED: VANCOMYCIN HCL 750 MG, VIAL MATE ADAPTER 1 EACH in NS 250 ML IV SCH (03:00)
[2021-03-17] MEDS: hydrALAZINE 20MG/ML 1ML VIAL (J0360 PER 20MG) IV SCH ×3 (03:00→18:07)
[2021-03-17] MEDS: KETOROLAC 30 MG/ML 1ML VIAL IV SCH ×4 (05:21→20:40)
[2021-03-17 05:30] LABS: BASO % 0.1 % (0.0-1.0); HEMATOCRIT 28.7 % (36.0-47.0); LYMPH # 0.7 10^3/uL (1.5-5.0); LYMPH % 4.4 % (24.0-44.0); MEAN CORPUSCULAR HEMOGLOBIN 29.4 pg (27.0-33.0); MEAN CORPUSCULAR HGB CONC 31.7 g/dl (32.0-36.5); MEAN CORPUSCULAR VOLUME 92.9 fl (80.0-96.0); MONO # 0.9 10^3/uL (0.0-0.8); NEUTROPHILS # 13.2 10^3/uL (1.5-8.5); RED BLOOD COUNT 3.09 10^6/uL (4.00-5.40); WHITE BLOOD COUNT 14.9 10^3/uL (4.0-10.0)
[2021-03-17 05:36] LABS: HEMOGLOBIN 9.1 g/dl (12.0-15.5); PLATELET COUNT, AUTOMATED 294 10^3/uL (150-450)
[2021-03-17 05:55] LABS: BLOOD UREA NITROGEN 22 MG/DL (7-18); CALCIUM LEVEL 8.7 MG/DL (8.8-10.2); CARBON DIOXIDE LEVEL 26 MEQ/L (21-32); CHLORIDE LEVEL 107 MEQ/L (98-107); CREATININE FOR GFR 0.82 MG/DL (0.55-1.30); GLOMERULAR FILTRATION RATE > 60.0 (>45); GLUCOSE, FASTING 128 MG/DL (70-100); POTASSIUM SERUM 4.2 MEQ/L (3.5-5.1); SODIUM LEVEL 140 MEQ/L (136-145)
[2021-03-17 06:25] LABS: ABG BASE EXCESS -3.8 (-2.0-2.0); ABG HCO3 19.8 MEQ/L (22.0-26.0); ABG O2 SATURATION 99.2 % (95.0-99.0); ABG PARTIAL PRESSURE CO2 30.7 mmHg (35.0-45.0); ABG STANDARD HCO3 21.3 MEQ/L (22.0-26.0); ABG TOTAL CO2 20.8 MEQ/L (23.0-31.0); ABG pH (ARTERIAL) 7.428 UNITS (7.350-7.450)
--- NOTE | 2021-03-17 08:36 | REP ---
INDICATION: when chest tube placed. COMPARISON: Comparison chest x-ray March 16, 2021. TECHNIQUE: Two views.. FINDINGS: There are bilateral chest tubes in place. The left chest tube terminates in the lateral left lung apex and the right chest tube in the anterior parasternal region. Right perihilar and right base infiltrates persist unchanged. Left lung is clear. There is a tiny left apical sliver of pleural air. There is a small collection of pleural air on the right apex a little larger than that seen on the left. There is a Stqeou-K-Vzzl catheter via the right side with its tip in the expected location of superior vena cava. EKG monitoring electrodes are seen. No pleural effusion is seen. Lungs are hyperinflated overall as before. IMPRESSION: Bilateral chest tubes in place. Tiny biapical pleural air collections persist. Infiltrate versus atelectasis right base and right perihilar region.. <Electronically signed by Diomedes Flores > 03/17/21 0833
[2021-03-17] MEDS: MOM 30ML SUSPENSION UDC PO SCH (09:00)
--- NOTE | 2021-03-17 10:05 | REP ---
INDICATION: underlying lung paranchyma ? bullus disease. Patient gives a history of squamous carcinoma of the lung post radiation and chemotherapy. COMPARISON: Comparison CT study is the pre chest tube exam from the previous day, March 16, 2021.. TECHNIQUE: Helical scanning is acquired. 3 mm axial images are generated. Coronal and sagittal MPR and coronal MIP images are generated. FINDINGS: Preliminary digital information technology consultant radiograph demonstrates a right-sided Waiajv-H-Pzio catheter into chest tubes 1 on each side. The lungs are reinflated bilaterally. There is a patchy alveolar infiltrate in the posterior segment of the right upper lobe. Alveolar consolidation areas are seen in the superior segment of the right lower lobe and there is some peripheral more opaque consolidation and atelectasis in the basilar segments and posterior aspect of the right lower lobe. There is a small quantity of bilateral pleural fluid. There are tiny residual pneumothoraces. There are numerous thin walled cavitary nodules throughout the lung conde bilaterally. These range in size up to 1.5 cm. Most are 1 cm or smaller. There is a non cystic soft tissue of pulmonary nodule in the lingula measuring 7 mm. There are a few other scattered smaller non cavitary nodules. There are granulomatous calcifications scattered in the spleen and 1 is seen in the liver. There are low-density small lesions in the E each kidney which may be cysts. No pericardial effusion is seen. No mediastinal adenopathy or mass is observed. No bony destructive lesion is seen. IMPRESSION: Bilateral chest tubes with successful reinflation of both lungs. Small bilateral pleural effusions. Bilateral pneumothoraces are associated with numerous thin walled cavitary nodules. Cystic pulmonary metastatic disease is the most likely possibility given the patient's history. Benign metastasized in leiomyoma could be considered as well. Patchy infiltrates are seen in the right upper lobe and right lower lobe as well consistent with pneumonia. <Electronically signed by Diomedes Flores > 03/17/21 1001
[2021-03-17] MEDS: DOCUSATE SODIUM 100MG CAPSULE PO SCH ×2 (10:14→20:40)
[2021-03-17] MEDS: HEPARIN SOD (PORCINE) 5000UNITS/ML 1ML VIAL/SYRINGE SC SCH ×2 (10:14→20:40)
[2021-03-17] MEDS: PANTOPRAZOLE 40MG TAB (PROTONIX) PO SCH (10:15)
[2021-03-17] MEDS: BACTRIM 160MG/800MG DS TAB PO SCH ×3 (12:23→20:40)
--- NOTE | 2021-03-17 12:40 | ECGEPIP ---
[facility] - ED Test Date: 2021-03-16 Pat Name: MARKUS SIEGEL Department: Room: - Gender: Female Event Marketing Coordinator: ayesha : 1955 Requested By: Jeannette Whitehead Order Number: [id number] Reading MD: Jeannette Whitehead Measurements Intervals [place] Rate: 116 P: 85 KS: 130 QRS: 102 QRSD: 74 T: 82 QT: 308 QTc: 428 Interpretive Statements Sinus tachycardia Rightward axis Pulmonary disease pattern NSTTW abnormalities No prior Electronically Signed on 03-17-2021 12:40:35 EDT by Jeannette Whitehead
[2021-03-17 13:44] LABS: LDH LACTATE DEHYDROGENASE 183 U/L (84-246)
--- NOTE | 2021-03-17 14:06 | IPNPDOC ---
Date Seen The patient was seen on 03/17/21. Progress Note SUBJECTIVE: HD stable. CT chest: reinflation of b/l lungs with b/l pleural effusions, cystic pulmonary disease. Suspicion for PCP PNA with patient's history per pulmonary. Started Bactrim TID, downgraded to PCU. OBJECTIVE: PHYSICAL EXAMINATION: VS: Please see below CONSTITUTIONAL: No acute distress, resting comfortably, AAO x 3 EYES: PERRLA, EOM intact HENT, MOUTH: large right forehead/frontal incision, well healing, moist mucous membranes NECK: SUPPLE, no JVD, no lymphadenopathy, no carotid bruit CV: sinus tachycardia, S1S2 normal, no murmurs/rubs/gallops CHEST: left anterior chest tube to bedside canister, right chest tube to cannister to suction. right upper chest port RESPIRATORY: Clear to auscultation bilaterally, no rales/rhonchi/wheezes GI: RLQ mass felt on exam, BS positive in 4 quadrants, soft, nontender, nondistended, no rebound or guarding : Deferred MUSCULOSKELETAL: Normal ROM. No cyanosis, clubbing, swelling, joint deformity, extremity edema INTEGUMENTARY: forehead incision described above otherwise other cranial scars appear well healed. No rashes, no lesions, no erythema NEUROLOGIC: Right side facial droop- chronic, no new focal deficits, strength 5/5 in all extremities PSYCHIATRIC: Mood and affect are normal LABORATORY DATA: Please see below MICROBIOLOGY: BCx x 4 sets: NG to date Resp panel: neg Sputum culture ordered, not collected IMAGING: CT chest 03/17/21: Bilateral chest tubes with successful reinflation of both lungs. Small bilateral pleural effusions. Bilateral pneumothoraces are associated with numerous thin walled cavitary nodules. Cystic pulmonary metastatic disease is the most likely possibility given the patient's history. Benign metastasized in leiomyoma could be considered as well. Patchy infiltrates are seen in the right upper lobe and right lower lobe as well consistent with pneumonia. CXR taken s/p bilateral chest tube placement: 1. Near complete re-expansion to the bilateral pneumothoraces with mild basilar atelectasis (right greater than left). 2. Underlying chronic interstitial changes. CT chest prior to chest tube placements: Large bilateral pneumothoraces with parenchymal changes as described above. CT head: There is evidence of recent resection, right temporal area with tissue loss and pneumocephalus in the resection cavity. There is also pneumocephalus over the right hemisphere with evidence of a right frontal craniotomy. The craniotomy flap in position over the right frontal region. No hemorrhage. There is minimal subdural collection over the right frontal area, measures perhaps 2-3 mm. There is mild [id number] midline shift. Ventricular size within normal limits. Paranasal sinuses are clear. The right mastoid is opacified, the left is fully aerated. 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 PLAN: Acute hypoxic and hypercarbic respiratory failure 2/2 to bilateral pneumothoraces possibly 2/2 to cystic pulmonary disease (r/o metastatic in nature), r/o PCP PNA -Currently saturating well on RA, 96% -WBC improving 14.9, afebrile. -S/p bilateral chest tube placement, remains to suction -Improving ABG -CT chest: Small bilateral pleural effusions. Bilateral pneumothoraces are associated with numerous thin walled cavitary nodules.Patchy infiltrates are seen in the right upper lobe and right lower lobe -C/w chest tubes, O2 supplementation, pain control, IS Q2 hrs while awake, started on Bactrim TID, other IV antibiotics d/doreen -Micro above, f/u sputum cx, LDH -Discussed the case in detail with Dr. Castro (pulmonary /CC). -Dr. Carrillo (CT surgery) following Leukocytosis r/o HCAP (recently was treated for inpatient PNA, multiple hospitalizations over past several months) vs. ? PCP -c/w w/u and tx above Minimal subdural collection over the right frontal area, measures perhaps 2-3 mm. (seen on CT head), midline shift mentioned above -S/p neurosurgery 03/05/21 -Discussed these results with Dr. Morales (neurosurgery) at [facility] over phone consultation on 03/16/21. He states this is likely normal findings s/p n eurosurgery. States it can take several weeks for blood and air to be reabsorbed. -Patient is currently AAOx 3, no new focal deficits, no n/v currently after resolution of respiratory issue -Continue to monitor and if s/s increase, occur suspicious for incr intracranial pressure, bleed then to address immediately -Will need to f/u with neurosurgery as o/p as previously scheduled. Metastatic small cell carcinoma of the right ear (to temporal bone, frontal lobe, chest, ?kidney and ? abdomen) diagnosed 01/2020, s/p chemotherapy, radiation -S/p radiation, chemotherapy, discussing immunotherapy recently per patient -See above under "social history" for list of oncology/radiation specialists -Most recently concern has been for ? kidney metastasis -F/u records from [facility] Chronic pain questionably secondary to back metastasis -No documented vertebral mets -C/w pain regimen Hypercalcemia likely 2/2 to metastatic disease -Improved Ca today -Monitor with daily CMP GI px -PPI DVT px -Heparin SC. If patient will be needing boluses or therapeutic dosing at any point this hospitalization, do not right away and consider reevaluation of subdural collection in frontal area seen on CT head. Resolved: Hypertensive urgency DISPOSITION: Can downgrade to PCU today if ok with CT surgery. Will need PT/OT. Plan is discharge home when medically improved. TOTAL AMOUNT OF ICU TIME SPENT CARING FOR PATIENT (nonprocedural): 35 mins VS, I&O, 24H, [facility] Vital Signs/I&O Vital Signs Date Time Temp Pulse Resp B/P (MAP) Pulse Ox O2 Delivery O2 Flow Rate FiO2 03/17/21 12:00 98.4 96 18 131/76 (94) 96 03/17/21 07:00 Room Air 03/16/21 18:00 1.0 03/16/21 14:23 100 I&O- Last 24 Hours up to 6 AM 03/17/21 06:00 Intake Total 3255 ml Output Total 250 ml Balance 3005 ml Laboratory Data 24H LABS Laboratory Tests 2 03/16/21 16:47: Urine Color YELLOW, Urine Appearance CLOUDYH, Urine pH 6.0, Urine Specific [place] 1.016, Urine Protein 2+H, Urine Glucose (UA) NEGATIVE, Urine Ketones NEGATIVE, Urine Blood 3+H, Urine Nitrite NEGATIVE, Urine Bilirubin NEGATIVE, Urine Urobilinogen 0.2, Urine Leukocyte Esterase NEGATIVE, Urine WBC (Auto) 10H, Urine RBC (Auto) TNTCH, Urine Hyaline Casts (Auto) 0, Urine Bacteria (Auto) NEGATIVE, Urine Squamous Epithelial Cells 0, Urine Mucus (Auto) SMALL, Urine Sperm (Auto) 03/17/21 04:40: Immature Granulocyte % (Auto) 0.5, Neutrophils (%) (Auto) 89.0H, Lymphocytes (%) (Auto) 4.4L, Monocytes (%) (Auto) 6.0, Eosinophils (%) (Auto) 0.0, Basophils (%) (Auto) 0.1, Neutrophils # (Auto) 13.2H, Lymphocytes # (Auto) 0.7L, Monocytes # (Auto) 0.9H, Eosinophils # (Auto) 0.0, Basophils # (Auto) 0.0, Nucleated Red Blood Cells % (auto) 0.0, Anion Gap 7L, Glomerular Filtration Rate > 60.0, Calcium Level 8.7#L, Procalcitonin 0.35 03/17/21 06:10: Blood Gas Bicarbonate Standard 21.3L, Arterial Blood pH 7.428, Arterial Blood Partial Pressure CO2 30.7L, Arterial Blood Partial Pressure O2 141.0H, Arterial Blood Total CO2 20.8L, Arterial Blood HCO3 19.8L, Arterial Blood Base Excess - 3.8L, Arterial Blood Oxygen Saturation 99.2H CBC/BMP Laboratory Tests 03/17/21 04:40 Microbiology Microbiology 03/16/21 Blood Culture - Preliminary, Resulted No growth after 24 hours . All specim... 03/16/21 Blood Culture - Preliminary, Resulted No growth after 24 hours . All specim... 03/16/21 Respiratory Virus Panel (PCR) (PERI) - Final, Complete 03/16/21 Blood Culture - Preliminary, Resulted No growth after 24 hours . All specim... 03/16/21 Blood Culture - Preliminary, Resulted No growth after 24 hours . All specim... Current Medications Current Medications Medications (Trade) Dose Ordered Sig/Albertina Route PRN Reason Start Time Stop Time Status Last Admin Dose Admin Acetaminophen (Tylenol Tab) 650 mg Q6HP PRN PO T > 101.5 or HOPE 03/16/21 08:25 Acetaminophen/ Hydrocodone Bitart ([place], Anexsia 5/325) 1 tab Q3H PRN PO MILD PAIN (PS 1-4) 03/16/21 08:25 03/16/21 13:53 Bisacodyl (Dulcolax Suppository) 10 mg Q4HP PRN MT CONSTIPATION 03/16/21 08:25 Ceftriaxone Sodium 2 gm/ Dextrose 50 ml @ 100 mls/hr Q24H IV 03/16/21 12:00 03/17/21 10:49 DC 03/16/21 12:43 Docusate Sodium (Colace) 100 mg BID PO 03/16/21 09:00 03/17/21 10:14 Heparin Sodium (Porcine) (Heparin) 5,000 units Q12H SC 03/16/21 09:00 03/17/21 10:14 Home Med (Med Rec Complete!) ASDIRECTED XX 03/16/21 08:40 03/16/21 09:27 DC Hydralazine HCl (Apresoline) 5 mg Q8H IV 03/16/21 11:00 Ketorolac Tromethamine (ToRADol) 30 mg Q6H IV 03/16/21 10:00 03/21/21 09:59 03/17/21 10:14 Levalbuterol HCl (Xopenex Neb) 1.25 mg Q2HP PRN NEB WHEEZING 03/16/21 08:25 Levalbuterol HCl (Xopenex Neb) 1.25 mg RQ6H NEB 03/16/21 08:00 03/17/21 07:29 Magnesium Hydroxide (Milk Of Magnesia) 30 ml DAILY PO 03/16/21 09:00 Ondansetron HCl (ZOFRAN INJection) 4 mg Q4HP PRN IV NAUSEA 03/16/21 08:25 Oxycodone/ Acetaminophen (Percocet 5mg/ 325mg Tablet) 1 tab Q4H PRN PO MODERATE PAIN (PS 5-7) 03/16/21 08:25 Oxycodone/ Acetaminophen (Percocet 5mg/ 325mg Tablet) 2 tab Q4H PRN PO SEVERE PAIN (PS 8-10) 03/16/21 08:25 Pantoprazole Sodium (Protonix) 40 mg DAILY PO 03/16/21 09:00 03/17/21 10:15 Potassium Chloride/Dextrose/ Sod Cl 1,000 ml @ 75 mls/hr Q95V12C IV 03/16/21 09:30 03/17/21 12:19 DC 03/16/21 22:00 Trimethoprim/ Sulfamethoxazole (Bactrim Ds, Septra Ds 160mg/ 800mg) 2 tab TID PO 03/17/21 09:00 03/17/21 12:23 Vancomycin HCl 750 mg/IV Miscellaneous Supplies 1 each/ Sodium Chloride 275 ml @ 275 mls/hr Q12H IV 03/17/21 03:00 03/17/21 10:49 DC 03/17/21 05:19 Vancomycin HCl 1000 mg/IV Miscellaneous Supplies 1 each/ Sodium Chloride 270 ml @ 270 mls/hr Q24H IV 03/16/21 10:45 03/16/21 14:25 DC Allergies Coded Allergies: poison prasanna extract (Verified Allergy, Unknown, rash, 03/16/21) Shirin Hernandez MD Mar 17, 2021 14:06
--- NOTE | 2021-03-17 21:57 | CCN ---
CRITICAL CARE NOTE DATE: 03/17/2021 SUBJECTIVE: The patient was seen and examined this morning during bedside rounds. The patient reports that her breathing has significantly improved. Her shortness of breath has improved with the placement of the bilateral chest tubes. She does have some occasional chest discomfort particularly with coughing and with the chest tube site. She had previously reported about a week or so of shortness of breath and a nonproductive cough before presenting to the hospital with worsening shortness of breath and dyspnea after she had an episode of retching and gagging. The patient has remained afebrile overnight. The patient currently reports she has an occasional now after drinking cold liquids but generally denies any significant coughing or choking after eating. The patient denies any nausea or vomiting currently. No abdominal pain. She has not had any fevers overnight. OBJECTIVE: PHYSICAL EXAMINATION: VITAL SIGNS: Temperature 98.6, pulse 78, respirations 16, blood pressure 139/70, O2 sat 94% on room air. INTAKE AND OUTPUT: In's 2.6 liters, out 250 mL. GENERAL APPEARANCE: The patient is a thin female who is sitting in bed in no acute respiratory distress. She is awake, alert and oriented x3. HEENT: The patient has a right frontal parietal area with a large fissure. She does have bitemporal wasting and a right sided facial droop. NECK: Supple. Trachea is midline. No JVD noted. CARDIAC: Regular rate and rhythm, normal S1, S2. Unable to clearly appreciate any murmurs. PULMONARY: Improved breath sounds bilaterally. There is an occasional squeak noted, mostly on the right side but no significant rhonchi or wheezes. The right sided chest tube has a brisk air leak noted on wall suction. The left chest tube has no air leak noted. ABDOMEN: Scaphoid, soft with a palpable mass in the right lower quadrant. It is nontender. EXTREMITIES: No significant lower extremity edema noted bilaterally. LABORATORY STUDIES: WBC 14.9, hemoglobin 9.1, platelets are 294. Chemistries - Potassium 4.2, chloride is 107, bicarbonate is 20, BUN 22, creatinine 0.82, glucose 128, lactic acid is 1.7 ABG: PH 7.428, PCO2 of 30.7, pO2 of 141.0. IMAGING: Chest x-ray showed a left chest tube in place with lower left apical pneumothorax. There is a right chest tube in place with right perihilar and right basilar infiltrates as well as a small collection of pleural air in the right apex. There is an infusaport in the right side. The lungs appear hyperinflated. A CT chest 03/17/21 there were some bilateral thin walled pulmonary cystic lesions as well as other scattered nodules which are non cavitating and some of which are more of ground glass appearing. There is a patchy alveolar infiltrate in the posterior segment of the right upper lobe and consolidation in the superior segment of the right lower lobe like more atelectasis and denser consolidation in the basilar segments and the posterior aspects of the right lower lobe. There is a small pleural effusion on the right and to a lesser degree on the left. There are tiny apical pneumothoraces with bilateral chest tubes noted. There are granulomatous calcifications in the spleen. There are low density lesions in the kidney which may be cysts. There is no mediastinal adenopathy noted. ASSESSMENT AND PLAN: Ms. 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 The patient also has had extensive issues with surgery required after destruction of the temporal area and bleeds erosion of the mass causing air and a CSF leak. There was also a questionable subdural hematoma and she had recently had surgery performed at [facility] earlier in February. The patient states during that time she was also treated for a pneumonia and discharged with oral antibiotics. Since discharge in the past week she has noticed worsening shortness of breath as well as a nonproductive cough as well as increasing weakness and lethargy. She had presented to the E.D. after she had started worsening difficulty with her breathing after an episode of retching and gagging. In the E.D. the patient was noted to have large bilateral pneumothoraces and was almost in tension pneumothorax. She had bilateral chest tubes placed emergently by cardiothoracic surgery and had improvement in her oxygenation and in her respiratory status. The patient did have increased leukocytosis initially and there was concern for a possible infection. And some of it may have been reactionary, but she was started on broad spectrum antibiotics with Vancomycin and Ceftazidime. 1. The patient's leukocytosis has improved. Her repeat CT of the chest done after chest tube placement has shown evidence of bilateral cystic lesions as well as other scattered nodular lesions, some of which were more ground glass in appearance. There is also evidence of alveolar infiltrate and consolidations, more in the right lung. The patient's pneumothoraces were likely secondary to rupture of one of the cystic lesions after she had increased intrathoracic pressure with her gagging and almost vomiting. The differential for this cystic lesion can include metastatic disease related to her squamous cell carcinoma. Other possible cystic lung diseases are possible such as PCP pneumonia. Her CT chest is not entirely consistent with PCP pneumonia, although she does have some evidence of other infiltrate and consolidation which may be indicating a bacterial pneumonia. 2. Discussed changing antibiotics to Bactrim which will cover for general pneumonia as well as for PCP. Would check LDH as well as a procalcitonin. Elevated LDH would be more consistent with the PCP pneumonia and elevated procalcitonin would be consistent with a bacterial pneumonia. Would attempt to get a sputum culture as well as sputum cytology with GMS stain to evaluate for a PCP. Depending on the results, may deescalate antibiotics accordingly. 3. Would consider discussing with the patient's oncologist and physicians at [facility], if the cystic lung lesions are known, they may represent the metastatic disease and may have been previously seen and evaluated in the past by her previous physicians. 4. Would continue chest tubes to wall suction and management as per Cardiothoracic Surgery. The right sided chest tube does have a continuous air leak noted. 5. We will continue monitoring the patient's respiratory status. Her acute hypoxemic respiratory failure was in the setting of her large, almost tension pneumothoraces and has resolved now. She is sating well on room air. 6. We will continue with head of bed elevation given her recent neuro surgery. We will continue with aspiration precautions as well. DVT PROPHYLAXIS Heparin. GI PROPHYLAXIS - PPI. CODE STATUS Full code. Please do not hesitate to call if any further questions or concerns. MTDD
[2021-03-18] VITALS: BP 133/70
[2021-03-18] MEDS: LEVALBUTEROL 1.25 MG/0.5 ML CONCENTRATE NEB NEB SCH ×4 (02:00→19:35)
[2021-03-18] MEDS: hydrALAZINE 20MG/ML 1ML VIAL (J0360 PER 20MG) IV SCH ×3 (03:00→17:13)
[2021-03-18] MEDS: KETOROLAC 30 MG/ML 1ML VIAL IV SCH ×2 (03:09→07:20)
[2021-03-18 03:31] LABS: BASO % 0.2 % (0.0-1.0); EOS # 0.1 10^3/uL (0.0-0.5); EOS % 0.5 % (0.0-3.0); HEMATOCRIT 28.8 % (36.0-47.0); HEMOGLOBIN 9.3 g/dl (12.0-15.5); LYMPH # 0.6 10^3/uL (1.5-5.0); LYMPH % 4.8 % (24.0-44.0); MEAN CORPUSCULAR HEMOGLOBIN 29.8 pg (27.0-33.0); MEAN CORPUSCULAR HGB CONC 32.3 g/dl (32.0-36.5); MEAN CORPUSCULAR VOLUME 92.3 fl (80.0-96.0); MONO # 0.8 10^3/uL (0.0-0.8); MONO % 6.2 % (2.0-8.0); NEUTROPHILS # 11.2 10^3/uL (1.5-8.5); NEUTROPHILS % 87.8 % (36.0-66.0); PLATELET COUNT, AUTOMATED 295 10^3/uL (150-450); RED BLOOD COUNT 3.12 10^6/uL (4.00-5.40); WHITE BLOOD COUNT 12.8 10^3/uL (4.0-10.0)
[2021-03-18 04:00] VITALS: BP 133/70
[2021-03-18 04:49] LABS: ALBUMIN 2.6 GM/DL (3.2-5.2); BILIRUBIN,TOTAL 0.2 MG/DL (0.2-1.0); CALCIUM LEVEL 9.5 MG/DL (8.8-10.2); CREATININE FOR GFR 1.4 MG/DL (0.55-1.30); GLOMERULAR FILTRATION RATE 40.4 (>45); POTASSIUM SERUM 4.3 MEQ/L (3.5-5.1); TOTAL PROTEIN 6.2 GM/DL (6.4-8.2)
[2021-03-18 08:00] VITALS: BP 148/76
--- NOTE | 2021-03-18 08:41 | IPN ---
PROGRESS NOTE DATE: 03/17/2021 SUBJECTIVE: Mrs. Argueta is certainly breathing a whole lot better today than she was yesterday prior to her chest tube placements. She is fairly comfortable with the pain being controlled by the use of oral analgesics. She still has an air leak from the right tube, but none from the left and I have taken the left tube off suction. OBJECTIVE: VITAL SIGNS: Show a T-max of 89.4 with a heart rate that ranges between 85 and 104 in sinus rhythm. Respiratory rate of 16 to 18 without the use of accessory muscles who is 94% to 98% saturated on room air and whose blood pressure is ranging between 125/70 to 139/70. INTAKE AND OUTPUT: Over the past 24 hours has been recorded as 2650 in and 250 out for a positivity of 2400 mL. She has put out 25 mL from the chest tubes. RESPIRATORY: She has equal breath sounds on either side. Percussion notes are full to the diaphragm. I do hear some faint inspiratory rhonchi at the right base, particularly on the right side. CARDIAC: Without murmurs, clicks, gallops, or rubs. I cannot feel her PMI. S1 and S2 are normal. ABDOMEN: Soft and nontender. Bowel sounds are positive. There is no hepatomegaly. No CVA tenderness. EXTREMITIES: Show no pretibial edema. No calf tenderness. No differential swelling of the upper extremities. SKIN: Warm, dry, and perfused without cyanosis or mottling, including that of the nail beds and knees. NECK: Supple. There is no jugular venous distention. No subcutaneous emphysema. Trachea is midline. MOUTH: Shows the mucous membranes to be pink and moist. Lips and commisures are without lesions and no thrush. EYES: Show her pupils equal and reactive. Extraocular muscles are intact. Sclerae nonicteric. NEUROLOGIC: Shows II through XII intact. Normal gross motor, gross sensation intact. Gait is not tested. PSYCHIATRIC: Shows her to be awake, alert, and oriented x3 with appropriate mood and affect and conversational. LABORATORY DATA: Her white count today is 14.9 down from 20.2 yesterday. Hemoglobin and hematocrit are 9.1 and 28.7 down from 11.6 and 26.5 secondary to hemodilution. Platelet count is 294,000. Differential shows 89% neutrophils, 4% lymphocytes, and 6% monocytes. I suspect leukocytosis yesterday was secondary to stress demargination. Her electrolytes today are normal with a BUN and creatinine of 22 and 0.82 with a glucose of 128 and a calcium of 8.7. Her chest x-ray today shows the lungs fully expand to the chest wall. There is no subcutaneous emphysema. Costophrenic angles are sharp. Chest tubes are in good place. I did obtain a CT of her today, which notably contains numerous cystic thin-walled lesions scattered throughout both her lungs. She also has a number of ground-glass nodules throughout. She has one cystic lesion at the pleural surface on the left side and in fact, there is at least one on the right side in the upper lobes. She looks to have some compression atelectasis maybe in the middle lobe. There is a small right pleural effusion and an even smaller left pleural effusion. Tubes are anterior and would not be drain the pleural effusions. Right now, they are small and inconsequential. I do not see any liver lesions and her adrenals have a normal configuration. IMPRESSION: 1. Bilateral tension pneumothoraces with respiratory failure now resolved with two chest tubes. 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 3. 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 Squamous cell carcinoma of the lung treated with chemotherapy and radiation therapy. 4. Diffuse metastasis to the kidneys, probable bone, and subcutaneous tissue. PLAN AND DISCUSSION: With the observation that she has cystic thin-walled lesions throughout the lung, these could represent metastatic foci, which are rather unusual that have been described as present in squamous cell carcinoma of the head and neck metastatic to the lungs. It is an unusual presentation for head and neck cancer to go to the lungs as it is usually the other way around. Nonetheless, whatever came first does not really matter at this point as she has diffuse metastatic disease. My hope is that the alveolopleural fistula will stop on the right side and I will be able to remove both chest tubes.
--- NOTE | 2021-03-18 08:52 | REP ---
INDICATION: when chest tube placed. COMPARISON: Comparison chest x-ray 17 March 2021. TECHNIQUE: Two views.. FINDINGS: Bilateral test tubes remain in place. There is a small right apical pneumothorax again seen. Thisa is similar in size the previous day's radiograph. A tiny apical bubble of pleural air is seen on the left. There is increased density in the right base consistent with pleuroparenchymal change and or infiltrate. Some increased parenchymal markings are seen in the right mid lung zone. There is a small quantity of extrathoracic air adjacent to the chest tube insertion site on the right. Left lung is essentially clear. A right-sided [id number] catheter is seen. The heart is not enlarged. Monitoring electrodes are noted. IMPRESSION: Bilateral chest tubes in place with bilateral small apical pneumothorax collections. Infiltrate in the right mid lung zone and right base persists unchanged.. <Electronically signed by Diomedes Flores > 03/18/21 [id number]
[2021-03-18] MEDS: MOM 30ML SUSPENSION UDC PO SCH (09:00)
[2021-03-18] MEDS: DOCUSATE SODIUM 100MG CAPSULE PO SCH ×2 (09:00→20:29)
[2021-03-18] MEDS: BACTRIM 160MG/800MG DS TAB PO SCH (09:31)
[2021-03-18] MEDS: PANTOPRAZOLE 40MG TAB (PROTONIX) PO SCH (09:31)
[2021-03-18] MEDS: HEPARIN SOD (PORCINE) 5000UNITS/ML 1ML VIAL/SYRINGE SC SCH ×2 (09:32→20:29)
--- NOTE | 2021-03-18 10:47 | IPN ---
PROGRESS NOTE DATE: 03/18/2021 SUBJECTIVE: Ms. Argueta is breathing well today. She, however, still has an air leak from the right chest tube. The left chest tube has been off suction and is not leaking. OBJECTIVE: VITAL SIGNS: Show a T-max of 99.1 with a heart rate that ranges between 109 and 98 in sinus rhythm. Respiratory rate that is constantly 16 who is 96% to 97% saturated on room air and whose blood pressure is ranging between 148/76 to 133/70. INTAKE AND OUTPUT: Over the past 24 hours has been recorded as 1540 in and 62 out for a positivity of 1468 mL. Her right chest tube has put out 58 mL with an air leak and her left chest tube has put out 4 mL without an air leak. She weighs 56.2 kg today compared to 56.4 kg yesterday. RESPIRATORY: Her lungs show equal breath sounds on either side. There are a few faint crackles on the right side, but more prominent has squeaks in the chest tube. Percussion notes are full to the diaphragm. There is no subcutaneous emphysema. CARDIAC: Without murmurs, clicks, gallops, or rubs. I cannot feel her PMI. S1 and S2 are normal. ABDOMEN: Soft and nontender. Bowel sounds are positive. There is no hepatomegaly. No CVA tenderness. EXTREMITIES: Show no pretibial edema. No calf tenderness. No differential swelling of the upper extremities. SKIN: Warm, dry, and perfused without cyanosis or mottling, including that of the nail beds and knees. NECK: Supple. There is no jugular venous distention. No subcutaneous emphysema. Trachea is midline. MOUTH: Shows her mucous membranes to be pink and moist. Lips and commisures are without lesions and no thrush. EYES: Show her pupils equal and reactive. Extraocular muscles are intact. Sclerae nonicteric. NEUROLOGIC: Shows II through XII intact. Normal gross motor, gross sensation intact. Gait is not tested. PSYCHIATRIC: Shows her to be awake, alert, and oriented x3 with appropriate mood and affect and conversational. LABORATORY DATA: Her white count today is 12.8, which continues to decrease with a hemoglobin and hematocrit of 9.3 and 28.8 unchanged from yesterday. Platelets of 295,000 and stable. Differential shows 87% neutrophils, 4% lymphocytes, and 6% monocytes. There are no immature forms and no toxic granulations. Her electrolytes are normal; however, her BUN and creatinine has risen to 30 and 1.40 from 22 and 0.82. The Toradol has been discontinued. Glucose is 94 with a calcium of 9.5. AST and ALT are normal. Albumin is 2.6. IMAGING DATA: Chest x-ray shows a small airspace in the right upper apex. Chest tube is in good place anteriorly. I have re-reviewed her CT scan from yesterday. I noted yesterday she had numerous thin-walled cysts throughout both lungs, two of which are at the apex at the periphery and may be the culprits that are leaking. IMPRESSION: 1. Bilateral tension pneumothoraces with respiratory failure now resolved with two bilateral chest tubes. 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 3. Squamous cell carcinoma of the head, neck, and external ear status post extensive resection. 4. Squamous cell carcinoma of the lung treated with chemotherapy and radiation therapy. 5. 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 6. Acute renal insufficiency secondary to Toradol. PLAN AND DISCUSSION: I will increase her suction today hoping to get the lung to the chest wall. It is not a very large air leak and the chest tube is in good place. That strategy may or may not work and if that does not work, I will turn the suction down tomorrow to see if I can decrease the air leak in that manner. The last thing I want to do with Ms. Argueta is take her to the operating room; although, a wedge resection and talc pleurodesis may be in the cards next week. Hopefully, her renal failure was secondary to Toradol and that was discontinued per my standing orders.
[2021-03-18 12:28] VITALS: BP 119/67
--- NOTE | 2021-03-18 14:26 | IPNPDOC ---
Date Seen The patient was seen on 03/18/21. Progress Note SUBJECTIVE: LDH normal, d/c bactrim per pulm. Changing to PO regimen for PNA. Right chest tube suction increased due to suspicion for air leak, left chest tube suction stopped. Denies chest pain, incr sob. OBJECTIVE: PHYSICAL EXAMINATION: VS: Please see below CONSTITUTIONAL: No acute distress, resting comfortably, AAO x 3 EYES: PERRLA, EOM intact HENT, MOUTH: large right forehead/frontal incision, well healing, moist mucous membranes NECK: SUPPLE, no JVD, no lymphadenopathy, no carotid bruit CV: sinus rhythm, S1S2 normal, no murmurs/rubs/gallops CHEST: left anterior chest tube to bedside canister no suction, right chest tube to cannister to incr suction. right upper chest port RESPIRATORY: Clear to auscultation bilaterally, no rales/rhonchi/wheezes GI: RLQ mass felt on exam, BS positive in 4 quadrants, soft, nontender, nondistended, no rebound or guarding : Deferred MUSCULOSKELETAL: Normal ROM. No cyanosis, clubbing, swelling, joint deformity, extremity edema INTEGUMENTARY: forehead incision- appears well healing, clean described above otherwise other cranial scars appear well healed. No rashes, no lesions, no erythema NEUROLOGIC: Right side facial droop- chronic, no new focal deficits, strength 5/5 in all extremities PSYCHIATRIC: Mood and affect are normal LABORATORY DATA: Please see below MICROBIOLOGY: BCx x 4 sets: NG to date Resp panel: neg Sputum culture ordered, not collected IMAGING: CXR 03/18/21: Bilateral chest tubes in place with bilateral small apical pneumothorax collections. Infiltrate in the right mid lung zone and right base persists unchanged. CT chest 03/17/21: Bilateral chest tubes with successful reinflation of both lungs. Small bilateral pleural effusions. Bilateral pneumothoraces are associated with numerous thin walled cavitary nodules. Cystic pulmonary metastatic disease is the most likely possibility given the patient's history. Benign metastasized in leiomyoma could be considered as well. Patchy infiltrates are seen in the right upper lobe and right lower lobe as well consistent with pneumonia. CXR taken s/p bilateral chest tube placement: 1. Near complete re-expansion to the bilateral pneumothoraces with mild basilar atelectasis (right greater than left). 2. Underlying chronic interstitial changes. CT chest prior to chest tube placements: Large bilateral pneumothoraces with parenchymal changes as described above. CT head: There is evidence of recent resection, right temporal area with tissue loss and pneumocephalus in the resection cavity. There is also pneumocephalus over the right hemisphere with evidence of a right frontal craniotomy. The craniotomy flap in position over the right frontal region. No hemorrhage. There is minimal subdural collection over the right frontal area, measures perhaps 2-3 mm. There is mild [id number] midline shift. Ventricular size within normal limits. Paranasal sinuses are clear. The right mastoid is opacified, the left is fully aerated. 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 PLAN: Acute hypoxic and hypercarbic respiratory failure 2/2 to bilateral pneumothoraces likely 2/2 to metastatic cystic pulmonary disease -Unlikely PCP PNA with normal LDH, bactrim stopped -Currently saturating well on RA, 96% -WBC further improved to 12.8, afebrile -S/p bilateral chest tube placement, no suction on left Chest tube, right chest tube suction increased to 40 -Recent imaging above -C/w chest tubes, O2 supplementation, pain control, IS Q2 hrs while awake, levofloxacin PO -Micro above, f/u sputum cx if one is able to be provided -Discussed the case in detail with Dr. Castro (pulmonary /CC). -Dr. Carrillo (CT surgery) following Leukocytosis r/o HCAP (recently was treated for inpatient PNA, multiple hospitalizations over past several months) -WBC 12.8, afebrile, not thought to be PCP with LDH normal -Procalcitonin >0.3 -D/c bactrim, started on levofloxacin PO, renally dosed -c/w w/u and tx above DARIAN likely 2/2 to toradol use -Cr 1.4, baseline wnl -Stopped toradol, avoid nephrotoxic medications, renally dose all meds -F/u AM labs, encourage PO fluid intake Minimal subdural collection over the right frontal area, measures perhaps 2-3 mm. (seen on CT head), midline shift mentioned above -S/p neurosurgery 03/05/21 -Discussed these results with Dr. Morales (neurosurgery) at [facility] over phone consultation on 03/16/21. He states this is likely normal findings s/p neurosurgery. States it can take several weeks for blood and air to be reabsorbed. -Patient is currently AAOx 3, no new focal deficits, no n/v currently after resolution of respiratory issue -Continue to monitor and if s/s increase, occur suspicious for incr intracranial pressure, bleed then to address immediately -Will need to f/u with neurosurgery as o/p as previously scheduled. Metastatic small cell carcinoma of the right ear (to temporal bone, frontal lobe, chest, ?kidney and ? abdomen) diagnosed 01/2020, s/p chemotherapy, radiation -S/p radiation, chemotherapy, discussing immunotherapy recently per patient -See above under "social history" for list of oncology/radiation specialists -Most recently concern has been for ? kidney metastasis -[facility] records in chart Chronic pain questionably secondary to back metastasis -No documented vertebral mets -C/w pain regimen Hypercalcemia likely 2/2 to metastatic disease -Improved Ca today -Monitor with daily CMP GI px -PPI DVT px -Heparin SC. If patient will be needing boluses or therapeutic dosing at any point this hospitalization, do not right away and consider reevaluation of subdural collection in frontal area seen on CT head. Resolved: Hypertensive urgency DISPOSITION: PCU status, holding in ICU awaiting bed, CT surg following closely. PT/OT when appropriate. Plan is discharge home when medically improved. VS, I&O, 24H, Fishbone Vital Signs/I&O Vital Signs Date Time Temp Pulse Resp B/P (MAP) Pulse Ox O2 Delivery O2 Flow Rate FiO2 03/18/21 12:28 98.3 99 18 119/67 (84) 98 Room Air 03/16/21 18:00 1.0 03/16/21 14:23 100 I&O- Last 24 Hours up to 6 AM 03/18/21 06:00 Intake Total 1115 ml Output Total 1474 ml Balance -359 ml Laboratory Data 24H LABS Laboratory Tests 2 03/18/21 03:10: Immature Granulocyte % (Auto) 0.5, Neutrophils (%) (Auto) 87.8H, Lymphocytes (%) (Auto) 4.8L, Monocytes (%) (Auto) 6.2, Eosinophils (%) (Auto) 0.5, Basophils (%) (Auto) 0.2, Neutrophils # (Auto) 11.2H, Lymphocytes # (Auto) 0.6L, Monocytes # (Auto) 0.8, Eosinophils # (Auto) 0.1, Basophils # (Auto) 0.0, Nucleated Red Blood Cells % (auto) 0.0, Anion Gap 8, Glomerular Filtration Rate 40.4L, Calcium Level 9.5, Total Bilirubin 0.2#, Aspartate Amino Transf (AST/SGOT) 27, Alanine Aminotransferase (ALT/SGPT) 47, Alkaline Phosphatase 369H, Total Protein 6.2L, Albumin 2.6#L, Albumin/Globulin Ratio 0.7L CBC/BMP Laboratory Tests 03/18/21 03:10 Microbiology Microbiology 03/16/21 Blood Culture - Preliminary, Resulted No Growth after 48 hours. All Specime... 03/16/21 Blood Culture - Preliminary, Resulted No Growth after 48 hours. All Specime... 03/16/21 Respiratory Virus Panel (PCR) (PERI) - Final, Complete 03/16/21 Blood Culture - Preliminary, Resulted No Growth after 48 hours. All Specime... 03/16/21 Blood Culture - Preliminary, Resulted No Growth after 48 hours. All Specime... Current Medications Current Medications Medications (Trade) Dose Ordered Sig/Albertina Route PRN Reason Start Time Stop Time Status Last Admin Dose Admin Acetaminophen (Tylenol Tab) 650 mg Q6HP PRN PO T > 101.5 or HOPE 03/16/21 08:25 Acetaminophen/ Hydrocodone Bitart ([place], Anexsia 5/325) 1 tab Q3H PRN PO MILD PAIN (PS 1-4) 03/16/21 08:25 03/16/21 13:53 Bisacodyl (Dulcolax Suppository) 10 mg Q4HP PRN MO CONSTIPATION 03/16/21 08:25 Ceftriaxone Sodium 2 gm/ Dextrose 50 ml @ 100 mls/hr Q24H IV 03/16/21 12:00 03/17/21 10:49 DC 03/16/21 12:43 Docusate Sodium (Colace) 100 mg BID PO 03/16/21 09:00 03/17/21 10:14 Heparin Sodium (Porcine) (Heparin) 5,000 units Q12H SC 03/16/21 09:00 03/18/21 09:32 Home Med (Med Rec Complete!) ASDIRECTED XX 03/16/21 08:40 03/16/21 09:27 DC Hydralazine HCl (Apresoline) 5 mg Q8H IV 03/16/21 11:00 03/17/21 18:07 Ketorolac Tromethamine (ToRADol) 30 mg Q6H IV 03/16/21 10:00 03/18/21 07:33 DC 03/18/21 03:09 Levalbuterol HCl (Xopenex Neb) 1.25 mg Q2HP PRN NEB WHEEZING 03/16/21 08:25 Levalbuterol HCl (Xopenex Neb) 1.25 mg RQ6H NEB 03/16/21 08:00 03/18/21 13:39 Magnesium Hydroxide (Milk Of Magnesia) 30 ml DAILY PO 03/16/21 09:00 Ondansetron HCl (ZOFRAN INJection) 4 mg Q4HP PRN IV NAUSEA 03/16/21 08:25 Oxycodone/ Acetaminophen (Percocet 5mg/ 325mg Tablet) 1 tab Q4H PRN PO MODERATE PAIN (PS 5-7) 03/16/21 08:25 Oxycodone/ Acetaminophen (Percocet 5mg/ 325mg Tablet) 2 tab Q4H PRN PO SEVERE PAIN (PS 8-10) 03/16/21 08:25 Pantoprazole Sodium (Protonix) 40 mg DAILY PO 03/16/21 09:00 03/18/21 09:31 Potassium Chloride/Dextrose/ Sod Cl 1,000 ml @ 75 mls/hr [id number] IV 03/16/21 09:30 03/17/21 12:19 DC 03/16/21 22:00 Trimethoprim/ Sulfamethoxazole (Bactrim Ds, Septra Ds 160mg/ 800mg) 2 tab TID PO 03/17/21 09:00 03/18/21 09:31 Vancomycin HCl 750 mg/IV Miscellaneous Supplies 1 each/ Sodium Chloride 275 ml @ 275 mls/hr Q12H IV 03/17/21 03:00 03/17/21 10:49 DC 4/22/21 05:19 Vancomycin HCl 1000 mg/IV Miscellaneous Supplies 1 each/ Sodium Chloride 270 ml @ 270 mls/hr Q24H IV 03/16/21 10:45 03/16/21 14:25 DC Allergies Coded Allergies: poison prasanna extract (Verified Allergy, Unknown, rash, 03/16/21) Shirin Hernandez MD Mar 18, 2021 14:26
[2021-03-18] MEDS ORDERED: LevoFLOXacin 500 MG TABLET PO ONE (15:00)
[2021-03-18 16:00] VITALS: BP 129/72
[2021-03-18 20:00] VITALS: BP 127/73
[2021-03-19] VITALS (7 sets, daily range): BP systolic 107–150; BP diastolic 59–81
[2021-03-19] MEDS: LEVALBUTEROL 1.25 MG/0.5 ML CONCENTRATE NEB NEB SCH ×4 (01:47→19:47)
[2021-03-19] MEDS: hydrALAZINE 20MG/ML 1ML VIAL (J0360 PER 20MG) IV SCH (03:58)
[2021-03-19 06:15] LABS: BASO % 0.3 % (0.0-1.0); EOS # 0.2 10^3/uL (0.0-0.5); EOS % 3.1 % (0.0-3.0); HEMATOCRIT 27.4 % (36.0-47.0); HEMOGLOBIN 8.9 g/dl (12.0-15.5); LYMPH # 0.4 10^3/uL (1.5-5.0); LYMPH % 5.9 % (24.0-44.0); MEAN CORPUSCULAR HEMOGLOBIN 30.1 pg (27.0-33.0); MEAN CORPUSCULAR HGB CONC 32.5 g/dl (32.0-36.5); MEAN CORPUSCULAR VOLUME 92.6 fl (80.0-96.0); MONO # 0.5 10^3/uL (0.0-0.8); MONO % 6.3 % (2.0-8.0); NEUTROPHILS # 6.2 10^3/uL (1.5-8.5); NEUTROPHILS % 83.7 % (36.0-66.0); PLATELET COUNT, AUTOMATED 305 10^3/uL (150-450); RED BLOOD COUNT 2.96 10^6/uL (4.00-5.40); WHITE BLOOD COUNT 7.4 10^3/uL (4.0-10.0)
[2021-03-19 06:39] LABS: ALBUMIN 2.6 GM/DL (3.2-5.2); BILIRUBIN,TOTAL 0.2 MG/DL (0.2-1.0); CALCIUM LEVEL 9.5 MG/DL (8.8-10.2); CREATININE FOR GFR 1.04 MG/DL (0.55-1.30); POTASSIUM SERUM 4.6 MEQ/L (3.5-5.1); TOTAL PROTEIN 6.6 GM/DL (6.4-8.2)
[2021-03-19] MEDS: LevoFLOXacin 250 MG TABLET PO SCH (06:50)
--- NOTE | 2021-03-19 07:52 | REP ---
INDICATION: when chest tube placed COMPARISON: 03/18/2021 TECHNIQUE: PA and lateral. FINDINGS: Bilateral chest tubes in stable position. [id number] in stable position with tip in the SVC. Bilateral pleuroparenchymal changes (right greater than left) are relatively stable. Small right apical pneumothorax again noted. No obvious left apical pneumothorax identified. No new acute process appreciated. IMPRESSION: 1. No significant change from prior examination. Continued pleuroparenchymal changes (right greater than left) and small right apical pneumothorax. 2. No obvious new acute process appreciated. <Electronically signed by Richard Beyer > 03/19/21 0710
[2021-03-19] MEDS: MOM 30ML SUSPENSION UDC PO SCH (08:16)
[2021-03-19] MEDS: DOCUSATE SODIUM 100MG CAPSULE PO SCH ×2 (08:16→20:33)
[2021-03-19] MEDS: PANTOPRAZOLE 40MG TAB (PROTONIX) PO SCH (08:16)
[2021-03-19] MEDS: HEPARIN SOD (PORCINE) 5000UNITS/ML 1ML VIAL/SYRINGE SC SCH ×2 (08:16→20:33)
[2021-03-19] MEDS: ACETAMINOPHEN TAB 650MG DOSE (2X325MG) PO PRN (08:23)
--- NOTE | 2021-03-19 10:54 | REP ---
INDICATION: Evaluate right abdominal nodule COMPARISON: None. TECHNIQUE: Real time B-mode grayscale and color ultrasound examination using linear high-frequency transducer. FINDINGS: Directed ultrasound examination overlying the palpable mass demonstrates an avascular nodule in the subcutaneous tissue measuring 2.2 x 0.9 x 1.6 cm which is nonspecific in appearance but appears benign. Differential diagnosis includes but is not limited to lipoma. IMPRESSION: Nonspecific avascular nodule in the subcutaneous tissue. Differential includes but is not limited to lipoma. Clinical/historical correlation is recommended. <Electronically signed by Richard Beyer > 03/19/21 [id number]
--- NOTE | 2021-03-19 12:12 | IPNPDOC ---
Date Seen The patient was seen on 03/19/21. Progress Note SUBJECTIVE: Borderline fever at 100.4 at 4 AM, WBC wnl with Cr normalized. Per Dr. Carrillo, likely OR this coming mid-week as air leak still present on the right. Left chest tube clamped. Denies increased chest pain, incr sob. OBJECTIVE: PHYSICAL EXAMINATION: VS: Please see below CONSTITUTIONAL: No acute distress, resting comfortably, AAO x 3 EYES: PERRLA, EOM intact HENT, MOUTH: large right forehead/frontal incision, well healing, moist mucous membranes NECK: SUPPLE, no JVD, no lymphadenopathy, no carotid bruit CV: sinus rhythm, S1S2 normal, no murmurs/rubs/gallops CHEST: left anterior chest tube to bedside canister no suction, right chest tube to cannister to suction. right upper chest port RESPIRATORY: improved breath sounds bilaterally, no rales/rhonchi/wheezes GI: RLQ nodule felt on exam, BS positive in 4 quadrants, soft, nontender, nondistended, no rebound or guarding : Deferred MUSCULOSKELETAL: Normal ROM. No cyanosis, clubbing, swelling, joint deformity, extremity edema INTEGUMENTARY: forehead/right temp lobe incision- appears well healing, clean described above otherwise other cranial scars appear well healed. No rashes, no lesions, no erythema NEUROLOGIC: Right side facial droop- chronic, no new focal deficits, strength 5/5 in all extremities PSYCHIATRIC: Mood and affect are normal LABORATORY DATA: Please see below MICROBIOLOGY: BCx x 4 sets: NG to date Resp panel: neg Sputum culture ordered, not able to be provided by patient IMAGING: CXR 03/19/21: 1. No significant change from prior examination. Continued pleuroparenchymal changes (right greater than left) and small right apical pneumothorax. 2. No obvious new acute process appreciated. Abd XR 03/19/21: Nonspecific avascular nodule in the subcutaneous tissue. Differential includes but is not limited to lipoma. Clinical/historical correlation is recommended. CXR 03/18/21: Bilateral chest tubes in place with bilateral small apical pneumothorax collections. Infiltrate in the right mid lung zone and right base persists unchanged. CT chest 03/17/21: Bilateral chest tubes with successful reinflation of both lungs. Small bilateral pleural effusions. Bilateral pneumothoraces are associated with numerous thin walled cavitary nodules. Cystic pulmonary metastatic disease is the most likely possibility given the patient's history. Benign metastasized in leiomyoma could be considered as well. Patchy infiltrates are seen in the right upper lobe and right lower lobe as well consistent with pneumonia. CXR taken s/p bilateral chest tube placement: 1. Near complete re-expansion to the bilateral pneumothoraces with mild basilar atelectasis (right greater than left). 2. Underlying chronic interstitial changes. CT chest prior to chest tube placements: Large bilateral pneumothoraces with parenchymal changes as described above. CT head: There is evidence of recent resection, right temporal area with tissue loss and pneumocephalus in the resection cavity. There is also pneumocephalus over the right hemisphere with evidence of a right frontal craniotomy. The craniotomy flap in position over the right frontal region. No hemorrhage. There is minimal subdural collection over the right frontal area, measures perhaps 2-3 mm. There is mild [id number] midline shift. Ventricular size within normal limits. Paranasal sinuses are clear. The right mastoid is opacified, the left is fully aerated. 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 PLAN: Acute hypoxic and hypercarbic respiratory failure 2/2 to bilateral pneumotho races likely 2/2 to metastatic cystic pulmonary disease -Currently saturating well on RA, 96%. Air leak persisting on right -WBC no wnl, borderline fever at 100.4 -S/p bilateral chest tube placement, no suction on left chest tube, right chest tube to suction -Recent imaging above -C/w chest tubes, O2 supplementation, pain control, IS Q2 hrs while awake, levofloxacin PO -Micro above, f/u sputum cx if one is able to be provided -Per Dr. Carrillo (CT surgery): likely OR mid-week coming up for talc pleurodesis. Will update patient's morale officer (Dr. Rossi, [facility] , ) after weekend. HCAP (recently was treated for inpatient PNA, multiple hospitalizations over past several months) -WBC wnl, afebrile, not thought to be PCP with LDH normal -Procalcitonin >0.3 -C/w levofloxacin PO DARIAN likely 2/2 to toradol use- resolved -Cr wnl -Stopped toradol, avoid nephrotoxic medications, renally dose all meds -F/u daily labs, encourage PO fluid intake Minimal subdural collection over the right frontal area, measures perhaps 2-3 mm. (seen on CT head), midline shift mentioned above -S/p right sided craniotomy for approach to anterior fossa skull base, para cranial flap harvest, repair of dural defect, frontal sinus cannulization and repair, partial remover of skull tumor 03/05/21. This was done for pneumocephalus, frontal bone metastasis status post radiation to skull tumor. -CT head done on admission above. Abnormal findings on this CT discussed with Dr. Morales (neurosurgery) at [facility] over phone consultation on 03/16/21. He states this is likely normal findings s/p neurosurgery. States it can take several weeks for blood and air to be reabsorbed. -Patient is currently AAOx 3, no new focal deficits, no n/v currently after resolution of respiratory issue -Continue to monitor and if s/s increase, occur suspicious for incr intracranial pressure, bleed then to address immediately -Will need to f/u with neurosurgery as o/p as previously scheduled. 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 abdomen) diagnosed 01/2020, s/p chemotherapy, radiation -S/p radiation, chemotherapy, discussing immunotherapy recently per patient -Follows closely with oncology/radiation specialists -Most recently concern has been for ? kidney metastasis -[facility] records in chart Chronic pain questionably secondary to back metastasis -No documented vertebral mets -C/w pain regimen Hypercalcemia likely 2/2 to metastatic disease -Improved Ca today -Monitor with daily CMP GI px -PPI DVT px -Heparin SC. If patient will be needing boluses or therapeutic dosing at any point this hospitalization, do not right away and consider reevaluation of subdural collection in frontal area seen on CT head. Resolved: Hypertensive urgency DISPOSITION: PCU status, holding in ICU awaiting bed, CT surg following closely. OR this coming week, will update heme/onc provider after weekend. PT/OT when appropriate. Plan is discharge home when medically improved. VS, I&O, 24H, Fishbone Vital Signs/I&O Vital Signs Date Time Temp Pulse Resp B/P (MAP) Pulse Ox O2 Delivery O2 Flow Rate FiO2 03/19/21 08:00 97.7 101 16 131/74 (93) 96 Room Air 03/16/21 18:00 1.0 03/16/21 14:23 100 I&O- Last 24 Hours up to 6 AM 03/19/21 06:00 Intake Total 1320 ml Output Total 1325 ml Balance -5 ml Laboratory Data 24H LABS Laboratory Tests 2 03/19/21 05:48: Immature Granulocyte % (Auto) 0.7, Neutrophils (%) (Auto) 83.7H, Lymphocytes (%) (Auto) 5.9L, Monocytes (%) (Auto) 6.3, Eosinophils (%) (Auto) 3.1H, Basophils (%) (Auto) 0.3, Neutrophils # (Auto) 6.2, Lymphocytes # (Auto) 0.4L, Monocytes # (Auto) 0.5, Eosinophils # (Auto) 0.2, Basophils # (Auto) 0.0, Nucleated Red Blood Cells % (auto) 0.0, Anion Gap 5L, Glomerular Filtration Rate 57.0, Calcium Level 9.5, Total Bilirubin 0.2, Aspartate Amino Transf (AST/SGOT) 25, Alanine Aminotransferase (ALT/SGPT) 44, Alkaline Phosphatase 378H, Total Protein 6.6, Albumin 2.6L, Albumin/Globulin Ratio 0.7L CBC/BMP Laboratory Tests 03/19/21 05:48 Microbiology Microbiology 03/16/21 Blood Culture - Preliminary, Resulted No Growth after 48 hours. All Specime... 03/16/21 Blood Culture - Preliminary, Resulted No Growth after 72 hours. All specime... 03/16/21 Respiratory Virus Panel (PCR) (PERI) - Final, Complete 03/16/21 Blood Culture - Preliminary, Resulted No Growth after 72 hours. All specime... 03/16/21 Blood Culture - Preliminary, Resulted No Growth after 72 hours. All specime... Current Medications Current Medications Medications (Trade) Dose Ordered Sig/Albertina Route PRN Reason Start Time Stop Time Status Last Admin Dose Admin Acetaminophen (Tylenol Tab) 650 mg Q6HP PRN PO T > 101.5 or HOPE 03/16/21 08:25 03/19/21 08:23 Acetaminophen/ Hydrocodone Bitart ([place], Anexsia 5/325) 1 tab Q3H PRN PO MILD PAIN (PS 1-4) 03/16/21 08:25 03/16/21 13:53 Bisacodyl (Dulcolax Suppository) 10 mg Q4HP PRN [place] CONSTIPATION 03/16/21 08:25 Ceftriaxone Sodium 2 gm/ Dextrose 50 ml @ 100 mls/hr Q24H IV 03/16/21 12:00 03/17/21 10:49 DC 03/16/21 12:43 Docusate Sodium (Colace) 100 mg BID PO 03/16/21 09:00 03/19/21 08:16 Heparin Sodium (Porcine) (Heparin) 5,000 units Q12H SC 03/16/21 09:00 03/19/21 08:16 Home Med (Med Rec Complete!) ASDIRECTED XX 03/16/21 08:40 03/16/21 09:27 DC Hydralazine HCl (Apresoline) 5 mg Q8H IV 03/16/21 11:00 03/19/21 09:42 DC 03/17/21 18:07 Ketorolac Tromethamine (ToRADol) 30 mg Q6H IV 03/16/21 10:00 03/18/21 07:33 DC 03/18/21 03:09 Levalbuterol HCl (Xopenex Neb) 1.25 mg Q2HP PRN NEB WHEEZING 03/16/21 08:25 Levalbuterol HCl (Xopenex Neb) 1.25 mg RQ6H NEB 03/16/21 08:00 03/18/21 19:35 Levofloxacin (Levaquin) 250 mg DAILY@06 PO 03/19/21 06:00 03/19/21 06:50 Magnesium Hydroxide (Milk Of Magnesia) 30 ml DAILY PO 03/16/21 09:00 Ondansetron HCl (ZOFRAN INJection) 4 mg Q4HP PRN IV NAUSEA 03/16/21 08:25 Oxycodone/ Acetaminophen (Percocet 5mg/ 325mg Tablet) 1 tab Q4H PRN PO MODERATE PAIN (PS 5-7) 03/16/21 08:25 Oxycodone/ Acetaminophen (Percocet 5mg/ 325mg Tablet) 2 tab Q4H PRN PO SEVERE PAIN (PS 8-10) 03/16/21 08:25 Pantoprazole Sodium (Protonix) 40 mg DAILY PO 03/16/21 09:00 03/19/21 08:16 Potassium Chloride/Dextrose/ Sod Cl 1,000 ml @ 75 mls/hr [id number] IV 03/16/21 09:30 03/17/21 12:19 DC 03/16/21 22:00 Trimethoprim/ Sulfamethoxazole (Bactrim Ds, Septra Ds 160mg/ 800mg) 2 tab TID PO 03/17/21 09:00 03/18/21 14:02 DC 03/18/21 09:31 Vancomycin HCl 750 mg/IV Miscellaneous Supplies 1 each/ Sodium Chloride 275 ml @ 275 mls/hr Q12H IV 03/17/21 03:00 03/17/21 10:49 DC 03/17/21 05:19 Vancomycin HCl 1000 mg/IV Miscellaneous Supplies 1 each/ Sodium Chloride 270 ml @ 270 mls/hr Q24H IV 03/16/21 10:45 03/16/21 14:25 DC Allergies Coded Allergies: poison prasanna extract (Verified Allergy, Unknown, rash, 03/16/21) Shirin Hernandez MD Mar 19, 2021 12:12
--- NOTE | 2021-03-19 12:42 | IPN ---
PROGRESS NOTE DATE: 03/19/2021 Ms. Argueta is comfortable. Her lung is fully expanded to the chest wall on both sides, but she still has a considerable air leak on the right side. Her left chest tube is clamped, and I was intending to remove it today. Her vital signs show a maximum temperature of 100.4 with a heart rate that ranges between 105-101 in a sinus rhythm, respiratory rate of 16-18 without the use of accessory muscles, who is 93%-96% saturated on room air and whose blood pressure is ranging between 150/81 to 128/73. Her intake and output for the past 24 hours has been recorded as 1500 in and 2727 out, for a negativity of 1227 mL. She has put out 52 mL from the right chest tube and, of course, nothing out the left chest tube, as that has been clamped. PHYSICAL EXAMINATION: She has equal breath sounds on either side with a full percussion note. I do not hear wheezes, rhonchi, or rales. Cardiac exam is without murmurs, clicks, gallops, or rubs. I cannot feel her point of maximal impulse (PMI). S1 and S2 are normal. Abdomen is soft and nontender. Bowel sounds are positive. There is no hepatomegaly. No costovertebral angle (CVA) tenderness. Extremities show no pretibial edema, no calf tenderness, no differential swelling of the upper extremities. Skin is warm, dry, and perfused without cyanosis or mottling, including that of the nailbeds and knees. Neck is supple. There is no jugular venous distention. No subcutaneous emphysema. Trachea is midline. Mouth shows the mucous membranes to be pink and moist. Lips and commissures without lesions. No thrush. Eyes show her pupils to be equal and reactive. Extraocular motion intact. Sclerae anicteric. Neurologic shows II-XII intact. Normal gross motor, gross sensation intact. Gait is not tested. Psychiatric shows her to be awake, alert, and oriented times three with appropriate mood and affect and conversational. Her white count today is 7.4 with a hemoglobin and hematocrit of 8.9 and 27.4, respectively. Platelet count is 305. Differential shows 83% neutrophils, 5% lymphocytes, 6% monocytes. There are no immature forms or toxic granulations. Her electrolytes are normal with a BUN and creatinine of 21 and 1.04, down from 30 and 1.40 yesterday. Calcium is 9.5 with an albumin of 2.6. Her chest x-ray today shows her lung fully expanded to the chest wall. There is no subcutaneous emphysema. The small apical airspace that was there on the right side at the cupula is now resolved. She has a little bit of costophrenic angle blunting on the right side. I see no other infiltrates on the lateral film except for something very small in the lower posteriorly, probably referable to the findings on the PA film on the right side. IMPRESSION: 1. Bilateral tension pneumothoraces with respiratory failure, now resolved with bilateral chest tubes. 2. Alveolar pleural fistula, right side. 3. Squamous cell carcinoma of the head, neck, and external ear, status post extensive resection. 4. Squamous cell carcinoma of the lung, treated with chemotherapy and radiation. 5. 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 6. Acute renal insufficiency secondary to Toradol, resolving. PLAN AND DISCUSSION: I have a sinking feeling that this alveolar pleural fistula is not going to resolve. Yesterday I tried getting the lung to the chest wall with increased suction, but the air leak is still continuing. I will therefore turn the suction down to -10 today to see if I can get the air leak to stop or at least slow down. I told her that we may have to take her to the operating room some time in the middle of the week to staple the upper lobe, as I think I see two cysts at the periphery at the cupula, which could very well be leaking. I will also undertake a talc pleurodesis. For the time being, I will now unclamp her left chest tube, as I may need it if she is to undergo positive pressure ventilation for surgery next week.
[2021-03-20] VITALS: BP 135/85
[2021-03-20] MEDS: NORCO, ANEXSIA 5/325MG TABLET (HYDROcodone/ACETAMINOPHEN) PO PRN ×2 (00:25→20:56)
[2021-03-20] MEDS: LEVALBUTEROL 1.25 MG/0.5 ML CONCENTRATE NEB NEB SCH ×4 (01:20→20:52)
[2021-03-20 04:00] VITALS: BP 148/83
[2021-03-20 04:52] LABS: BASO % 0.2 % (0.0-1.0); EOS # 0.3 10^3/uL (0.0-0.5); EOS % 5.1 % (0.0-3.0); HEMOGLOBIN 8.8 g/dl (12.0-15.5); LYMPH # 0.5 10^3/uL (1.5-5.0); LYMPH % 8.8 % (24.0-44.0); MEAN CORPUSCULAR HEMOGLOBIN 29.3 pg (27.0-33.0); MEAN CORPUSCULAR HGB CONC 31.4 g/dl (32.0-36.5); MEAN CORPUSCULAR VOLUME 93.3 fl (80.0-96.0); MONO # 0.5 10^3/uL (0.0-0.8); MONO % 7.7 % (2.0-8.0); NEUTROPHILS # 4.8 10^3/uL (1.5-8.5); NEUTROPHILS % 77.9 % (36.0-66.0); PLATELET COUNT, AUTOMATED 283 10^3/uL (150-450); WHITE BLOOD COUNT 6.1 10^3/uL (4.0-10.0)
[2021-03-20 05:23] LABS: ALBUMIN 2.7 GM/DL (3.2-5.2); ALT/SGPT 42 U/L (12-78); BILIRUBIN,TOTAL 0.2 MG/DL (0.2-1.0); BLOOD UREA NITROGEN 21 MG/DL (7-18); CALCIUM LEVEL 9.7 MG/DL (8.8-10.2); CARBON DIOXIDE LEVEL 29 MEQ/L (21-32); CHLORIDE LEVEL 102 MEQ/L (98-107); CREATININE FOR GFR 0.97 MG/DL (0.55-1.30); GLOMERULAR FILTRATION RATE > 60.0 (>45); GLUCOSE, FASTING 85 MG/DL (70-100); POTASSIUM SERUM 4.8 MEQ/L (3.5-5.1); SODIUM LEVEL 136 MEQ/L (136-145); TOTAL PROTEIN 5.9 GM/DL (6.4-8.2)
[2021-03-20] MEDS: LevoFLOXacin 250 MG TABLET PO SCH (05:54)
[2021-03-20 08:00] VITALS: BP 154/82
--- NOTE | 2021-03-20 08:39 | REP ---
INDICATION: when chest tube placed COMPARISON: 03/19/2021 TECHNIQUE: PA and lateral. FINDINGS: Bilateral chest tubes are in stable position. The current examination demonstrates a significant increased right hydropneumothorax of approximately 50-60%. There is increased subcutaneous emphysema along the right lateral chest wall. There is mild contralateral shift to the mediastinum. The left hemithorax appears relatively stable although a small left apical pneumothorax cannot be excluded. IMPRESSION: Significantly worsened right hydropneumothorax and increased subcutaneous emphysema with mild contralateral mediastinal shift noted. <Electronically signed by Richard Beyer > 03/20/21 0836
[2021-03-20] MEDS: HEPARIN SOD (PORCINE) 5000UNITS/ML 1ML VIAL/SYRINGE SC SCH ×2 (09:17→20:55)
[2021-03-20] MEDS: PANTOPRAZOLE 40MG TAB (PROTONIX) PO SCH (09:17)
[2021-03-20] MEDS: MOM 30ML SUSPENSION UDC PO SCH (09:17)
[2021-03-20] MEDS: DOCUSATE SODIUM 100MG CAPSULE PO SCH ×2 (09:17→20:55)
--- NOTE | 2021-03-20 11:57 | IPNPDOC ---
Date Seen The patient was seen on 03/20/21. Progress Note SUBJECTIVE: Afebrile with no borderline fevers over the past 24 + hours. H/H dropping slightly, occult blood ordered. Repeat CXR today showed significantly worsened right hydropneumothorax and increased subcutaneous emphysema with mild contralateral mediastinal shift noted. Dr. Carrillo discussing with Pulmonary to take to OR. Left chest tube remains clamped. Denies increased chest pain, incr sob. OBJECTIVE: PHYSICAL EXAMINATION: VS: Please see below CONSTITUTIONAL: No acute distress, resting comfortably, AAO x 3 EYES: PERRLA, EOM intact HENT, MOUTH: large right frontal bone incision, well healing, moist mucous membranes NECK: SUPPLE, no JVD, no lymphadenopathy, no carotid bruit CV: sinus rhythm, S1S2 normal, no murmurs/rubs/gallops CHEST: left anterior chest tube to bedside canister no suction, right chest tube to cannister to suction. right upper chest port RESPIRATORY: decreased breath sounds on right upper lung, improved aeration on left lung, no rales/rhonchi/wheezes GI: RLQ nodule felt on exam, BS positive in 4 quadrants, soft, nontender, nondistended, no rebound or guarding : Deferred MUSCULOSKELETAL: Normal ROM. No cyanosis, clubbing, swelling, joint deformity, extremity edema INTEGUMENTARY: forehead/right temp lobe incision- appears well healing, clean described above otherwise other cranial scars appear well healed. No rashes, no lesions, no erythema NEUROLOGIC: Right side facial droop- chronic, no new focal deficits, strength 5/5 in all extremities PSYCHIATRIC: Mood and affect are normal LABORATORY DATA: Please see below MICROBIOLOGY: BCx x 4 sets: NG to date Resp panel: neg Sputum culture ordered, not able to be provided by patient IMAGING: CXR 03/20/21: Significantly worsened right hydropneumothorax and increased subcutaneous e mphysema with mild contralateral mediastinal shift noted. CXR 03/19/21: 1. No significant change from prior examination. Continued pleuroparenchymal changes (right greater than left) and small right apical pneumothorax. 2. No obvious new acute process appreciated. Abd XR 03/19/21: Nonspecific avascular nodule in the subcutaneous tissue. Differential includes but is not limited to lipoma. Clinical/historical correlation is recommended. CXR 03/18/21: Bilateral chest tubes in place with bilateral small apical pneumothorax collections. Infiltrate in the right mid lung zone and right base persists unchanged. CT chest 03/17/21: Bilateral chest tubes with successful reinflation of both lungs. Small bilateral pleural effusions. Bilateral pneumothoraces are associated with numerous thin w alled cavitary nodules. Cystic pulmonary metastatic disease is the most likely possibility given the patient's history. Benign metastasized in leiomyoma could be considered as well. Patchy infiltrates are seen in the right upper lobe and right lower lobe as well consistent with pneumonia. CXR taken s/p bilateral chest tube placement: 1. Near complete re-expansion to the bilateral pneumothoraces with mild basilar atelectasis (right greater than left). 2. Underlying chronic interstitial changes. CT chest prior to chest tube placements: Large bilateral pneumothoraces with parenchymal changes as described above. CT head: There is evidence of recent resection, right temporal area with tissue loss and pneumocephalus in the resection cavity. There is also pneumocephalus over the right hemisphere with evidence of a right frontal craniotomy. The craniotomy flap in position over the right frontal region. No hemorrhage. There is minimal subdural collection over the right frontal area, measures perhaps 2-3 mm. There is mild [id number] midline shift. Ventricular size within normal limits. Paranasal sinuses are clear. The right mastoid is opacified, the left is fully aerated. 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 PLAN: Acute hypoxic and hypercarbic respiratory failure 2/2 to bilateral pneumothoraces likely 2/2 to metastatic cystic pulmonary disease -93-94% on RA, worsening right pneumothorax with mild contralateral mediastinal shift noted today on CXR- see above. Persisting air leak persisting on right -WBC no wnl, afebrile -S/p bilateral chest tube placement, no suction on left chest tube, right chest tube to suction -C/w chest tubes, O2 supplementation, pain control, IS Q2 hrs while awake, levofloxacin PO -Micro above, f/u sputum cx if one is able to be provided -Per Dr. Carrillo (CT surgery): OR in the AM. 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 Rossi, [facility] , ) per patient's requst after weekend. HCAP (recently was treated for inpatient PNA, multiple hospitalizations over past several months) -WBC wnl, afebrile, not thought to be PCP with LDH normal -Procalcitonin >0.3 -C/w levofloxacin PO DARIAN likely 2/2 to toradol use- resolved -Cr wnl -Stopped toradol, avoid nephrotoxic medications, renally dose all meds -F/u daily labs, encourage PO fluid intake Minimal subdural collection over the right frontal area, measures perhaps 2-3 mm. (seen on CT head), midline shift mentioned above -S/p right sided craniotomy for approach to anterior fossa skull base, para cranial flap harvest, repair of dural defect, frontal sinus cannulization and repair, partial remover of skull tumor 03/05/21. This was done for pneumocephalus, frontal bone metastasis status post radiation to skull tumor. -CT head done on admission above. Abnormal findings on this CT discussed with Dr. Morales (neurosurgery) at [facility] over phone consultation on 03/16/21. He states this is likely normal findings s/p neurosurgery. States it can take several weeks for blood and air to be reabsorbed. -Patient is currently AAOx 3, no new focal deficits, no n/v currently after resolution of respiratory issue -Continue to monitor and if s/s increase, occur suspicious for incr intracranial pressure, bleed then to address immediately -Will need to f/u with neurosurgery as o/p as previously scheduled. 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 abdomen) diagnosed 01/2020, s/p chemotherapy, radiation -S/p radiation, chemotherapy, discussing immunotherapy recently per patient -Follows closely with oncology/radiation specialists -Most recently concern has been for ? kidney metastasis -[facility] records in chart Chronic pain questionably secondary to back metastasis -No documented vertebral mets -C/w pain regimen GI px -PPI DVT px -Heparin SC. If patient will be needing boluses or therapeutic dosing at any point this hospitalization, do not right away and consider reevaluation of subdural collection in frontal area seen on CT head. Resolved: Hypertensive urgency Hypercalcemia likely 2/2 to metastatic disease DISPOSITION: PCU status. CT surg on board, OR in the AM. Will update heme/onc provider after weekend. PT/OT when appropriate. Plan is discharge home when medically improved. VS, I&O, 24H, Fishbone Vital Signs/I&O Vital Signs Date Time Temp Pulse Resp B/P (MAP) Pulse Ox O2 Delivery O2 Flow Rate FiO2 03/20/21 08:00 98.2 103 19 154/82 (106) 94 Room Air 03/16/21 18:00 1.0 03/16/21 14:23 100 I&O- Last 24 Hours up to 6 AM 03/20/21 06:00 Intake Total 540 ml Output Total 1240 ml Balance -700 ml Laboratory Data 24H LABS Laboratory Tests 2 03/20/21 04:36: Immature Granulocyte % (Auto) 0.3, Neutrophils (%) (Auto) 77.9H, Lymphocytes (%) (Auto) 8.8L, Monocytes (%) (Auto) 7.7, Eosinophils (%) (Auto) 5.1H, Basophils (%) (Auto) 0.2, Neutrophils # (Auto) 4.8, Lymphocytes # (Auto) 0.5L, Monocytes # (Auto) 0.5, Eosinophils # (Auto) 0.3, Basophils # (Auto) 0.0, Nucleated Red Blood Cells % (auto) 0.0, Anion Gap 5L, Glomerular Filtration Rate > 60.0, Calcium Level 9.7, Total Bilirubin 0.2, Aspartate Amino Transf (AST/SGOT) 28, Alanine Aminotransferase (ALT/SGPT) 42, Alkaline Phosphatase 375H, Total Protein 5.9L, Albumin 2.7L, Albumin/Globulin Ratio 0.8L CBC/BMP Laboratory Tests 03/20/21 04:36 Microbiology Microbiology 03/16/21 Blood Culture - Preliminary, Resulted No Growth after 72 hours. All specime... 03/16/21 Blood Culture - Preliminary, Resulted No Growth after 72 hours. All specime... 03/16/21 Respiratory Virus Panel (PCR) (PER[facility]) - Final, Complete 03/16/21 Blood Culture - Preliminary, Resulted No Growth after 72 hours. All specime... 4/21/21 Blood Culture - Preliminary, Resulted No Growth after 72 hours. All specime... Shirin Hernandez MD Mar 20, 2021 11:57
[2021-03-20 12:00] VITALS: BP 161/78
[2021-03-20] MEDS: ACETAMINOPHEN TAB 650MG DOSE (2X325MG) PO PRN (14:31)
[2021-03-20 16:00] VITALS: BP 150/67
[2021-03-20 20:00] VITALS: BP 127/75
[2021-03-21] VITALS (9 sets, daily range): BP systolic 121–147; BP diastolic 67–88
[2021-03-21] MEDS: LEVALBUTEROL 1.25 MG/0.5 ML CONCENTRATE NEB NEB SCH ×4 (01:41→20:00)
[2021-03-21 05:22] LABS: HEMATOCRIT 31.1 % (36.0-47.0); HEMOGLOBIN 9.7 g/dl (12.0-15.5); MEAN CORPUSCULAR HEMOGLOBIN 29.2 pg (27.0-33.0); MEAN CORPUSCULAR HGB CONC 31.2 g/dl (32.0-36.5); MEAN CORPUSCULAR VOLUME 93.7 fl (80.0-96.0); PLATELET COUNT, AUTOMATED 350 10^3/uL (150-450); RED BLOOD COUNT 3.32 10^6/uL (4.00-5.40); WHITE BLOOD COUNT 7.8 10^3/uL (4.0-10.0)
[2021-03-21 05:42] LABS: ALBUMIN 2.9 GM/DL (3.2-5.2); ALT/SGPT 42 U/L (12-78); BILIRUBIN,TOTAL 0.3 MG/DL (0.2-1.0); BLOOD UREA NITROGEN 23 MG/DL (7-18); CALCIUM LEVEL 10.3 MG/DL (8.8-10.2); CARBON DIOXIDE LEVEL 28 MEQ/L (21-32); CHLORIDE LEVEL 103 MEQ/L (98-107); CREATININE FOR GFR 0.96 MG/DL (0.55-1.30); GLOMERULAR FILTRATION RATE > 60.0 (>45); GLUCOSE, FASTING 92 MG/DL (70-100); POTASSIUM SERUM 4.8 MEQ/L (3.5-5.1); SODIUM LEVEL 138 MEQ/L (136-145); TOTAL PROTEIN 6.4 GM/DL (6.4-8.2)
[2021-03-21] MEDS: LevoFLOXacin 250 MG TABLET PO SCH (06:45)
--- NOTE | 2021-03-21 07:47 | IPN ---
PROGRESS NOTE DATE: 03/20/2021 SUBJECTIVE: Ms. Argueta is still leaking. I turned her suction down to -10 yesterday and her chest x-ray shows her lung to have a 50% pneumothorax. I have therefore, turned the suction back up to 40. She notes that she is slightly more short of breath today than she was yesterday. OBJECTIVE: VITAL SIGNS: Show a T-max of 98.2 with a heart rate that ranges between 92 and 111 in sinus rhythm. Respiratory rate of 16 to 19 without the use of accessory muscles who is 93% to 94% saturated on room air and whose blood pressure is ranging between 154/82 to 135/85. INTAKE AND OUTPUT: Over the past 24 hours has been recorded as 540 in and 937 out for a negativity of 400 mL. She has put 32 mL from the right chest tube and 5 from the left. There is no air leak on the left. Her weight today is 50.8 kg compared to 53.2 kg yesterday. RESPIRATORY: She has markedly decreased breath sounds on the right side before turning the suction back up. Percussion notes are full to the diaphragm. CARDIAC: Without murmurs, clicks, gallops, or rubs. I cannot feel her PMI. S1 and S2 are normal. ABDOMEN: Soft and nontender. Bowel sounds are positive. There is no hepatomegaly. No CVA tenderness. EXTREMITIES: Show no pretibial edema. No calf tenderness. No differential swelling of the upper extremities. SKIN: Warm, dry, and perfused without cyanosis or mottling, including that of the nail beds and knees. NECK: Supple. There is no jugular venous distention. No subcutaneous emphysema. Trachea is midline. MOUTH: Shows the mucous membranes to be pink and moist. Lips and commisures are without lesions and no thrush. EYES: Show her pupils equal and reactive. Extraocular muscles are intact. Sclerae nonicteric. NEUROLOGIC: Shows II through XII intact. Normal gross motor, gross sensation intact. Gait is not tested. PSYCHIATRIC: Shows her to be awake, alert, and oriented x3 with appropriate mood and affect and conversational. LABORATORY DATA: Her white count today is 6.1 with hemoglobin and hematocrit of 8.8 and 28.0 respectively. Platelet count is 283,000 and stable. Differential shows 77% neutrophils, 8% lymphocytes, and 7% monocytes. There are no immature forms and no toxic granulations. Her electrolytes are normal with a BUN and creatinine of 21 and 0.97 with a glucose of 85 and an albumin of 2.7. IMAGING DATA: Her chest x-ray shows the above pneumothorax. IMPRESSION: 1. Bilateral spontaneous pneumothoraces with acute respiratory failure now resolved with bilateral chest tubes. 2. Recurrent right pneumothorax with alveolopleural fistula. 3. 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 4. Squamous cell carcinoma of the lungs treated with chemotherapy and radiation. 5. Diffuse metastases to the kidneys and probably bone and subcutaneous tissue. 6. Acute renal insufficiency secondary to Toradol, resolved. PLAN AND DISCUSSION: I had a discussion with Dr. Rick of pulmonology. We will take her to the operating room tomorrow to do a balloon occlusion bronchoscopy. If we can find the segment that is leaking, we will then occlude it with TISSEEL glue to try and give the lung some time to heal itself. If that does not work, I will need to take her back to the operating room and undertake a talc pleurodesis with a wedge resection. If we can find the offending bronchus, it will give me some ideas where to do a wedge resection should I need to go in thoracoscopically.
[2021-03-21] MEDS: DOCUSATE SODIUM 100MG CAPSULE PO SCH ×2 (08:30→20:31)
[2021-03-21] MEDS: MOM 30ML SUSPENSION UDC PO SCH (08:31)
[2021-03-21] MEDS: PANTOPRAZOLE 40MG TAB (PROTONIX) PO SCH (08:31)
[2021-03-21] MEDS ORDERED: LIDOCAINE 1% SDV 30ML VIAL As Ordered ONE (08:59)
[2021-03-21] MEDS ORDERED: LIDOCAINE 2% JELLY 5ML TUBE As Ordered ONE (08:59)
[2021-03-21] MEDS ORDERED: CETACAINE SPRAY 5GM As Ordered ONE (08:59)
[2021-03-21] MEDS: HEPARIN SOD (PORCINE) 5000UNITS/ML 1ML VIAL/SYRINGE SC SCH (09:00)
[2021-03-21] MEDS ORDERED: EPINEPHrine 1MG/10ML SYRINGE 1.5IN As Ordered ONE (09:00)
[2021-03-21] MEDS ORDERED: COCAINE 4% 4ML NASAL SOLUTION BTL As Ordered ONE (09:00)
[2021-03-21] MEDS ORDERED: THROMBIN SOLN 5,000 UNITS VIAL As Ordered ONE (09:01)
--- NOTE | 2021-03-21 09:01 | REP ---
INDICATION: when chest tube placed. COMPARISON: Multiple the latest 04/19/2021 TECHNIQUE: PA and lateral FINDINGS: Cardiomediastinal silhouette is unchanged. The thoracotomy tubes are unchanged. Right-sided hydropneumothorax appears decreased. Patchy right lower lung field opacities are slightly decreased. No new abnormal opacities have developed. There is no change in the osseous structures. The tip of the MediPort device remains in the superior vena cava. IMPRESSION: There has been some improvement as described above. <Electronically signed by Kaushal Coffey > 03/21/21 [id number]
[2021-03-21] MEDS ORDERED: MIDAZOLAM INJ 2MG/2ML VIAL (J2250 PER 1MG) As Ordered ONE (10:18)
[2021-03-21] MEDS ORDERED: fentaNYL 100 MCG/2 ML INJECTION (J3010) As Ordered ONE (10:18)
[2021-03-21] MEDS ORDERED: ONDANSETRON 4MG/2ML VIAL As Ordered ONE (10:23)
[2021-03-21] MEDS ORDERED: ROCURONIUM BROMIDE 50 MG/5 ML VIAL As Ordered ONE ×2 (10:23→11:53)
[2021-03-21] MEDS ORDERED: propofoL 200 MG/20 ML VIAL As Ordered ONE (10:23)
[2021-03-21] MEDS ORDERED: dexameTHASONE 4 MG/ML 1ML VIAL (J1100 PER 1MG) As Ordered ONE (10:23)
[2021-03-21] MEDS ORDERED: LIDOCAINE 2% 100MG/5ML SDV (FOR ANES.) As Ordered ONE (10:23)
[2021-03-21] MEDS ORDERED: SUGAMMADEX SODIUM 500 MG/5 ML VIAL (BRIDION) As Ordered ONE (11:10)
[2021-03-21] MEDS ORDERED: PHENYLephrine 500MCG 5ML (100MCG/ML) SYRINGE As Ordered ONE (11:35)
[2021-03-21] MEDS ORDERED: oxyCODONE 5MG TAB PO PRN (13:20)
[2021-03-21] MEDS ORDERED: fentaNYL 100 MCG/2 ML INJECTION (J3010) IV PRN (13:20)
[2021-03-21] MEDS ORDERED: ONDANSETRON 4MG/2ML VIAL IV PRN (13:20)
[2021-03-21] MEDS ORDERED: LR 1,000 ML IV SCH (13:20)
--- NOTE | 2021-03-21 13:35 | REP ---
INDICATION: pneurmothrx. 21 March 2021 1:18 p.m. radiograph. COMPARISON: Comparison radiograph 7:54 a.m. on 21 March 2021. TECHNIQUE: Portable upright AP chest radiograph. FINDINGS: Two right-sided chest tubes remain in place. There is a right-sided pneumothorax again noted, essentially unchanged in size from the 7:54 a.m. film today. There is more extra thoracic soft tissue emphysema visible along the right chest on the current radiograph. Some soft tissue emphysema is seen in the left axillary soft tissues. No left-sided pneumothorax is visible. There are linear opacities in the base and along the minor fissure on the right consistent with discoid atelectasis or infiltrates. These are unchanged. Right-sided [id number] catheter remains in place. Heart is not enlarged. No bony abnormality is seen. IMPRESSION: Increasing extra thoracic soft tissue air. 4 cm right apical pneumothorax unchanged from the film done earlier today. Atelectasis and/or infiltrate right base.. <Electronically signed by Diomedes Flores > 03/21/21 [id number]
--- NOTE | 2021-03-21 14:08 | IPN ---
PROGRESS NOTE DATE: 03/21/2021 SUBJECTIVE: Dr. Rick and I spent about an hour and a half trying to isolate the leaking bronchus and could not reliably do so. Each segment and subsegment were thoroughly inspected and sequentially occluded. We could not stop the air leak by occlusion of any of these segments or subsegments. We, therefore, did not undertake gluing of any of the segmental bronchi. I will therefore, have to take her to the operating room to undertake wedge resections and talc pleurodesis. OBJECTIVE: VITAL SIGNS: Show a T-max of 98.5 with a heart rate that ranges between 98 and 125 respectively with a respiratory rate of 14 to 19 without the use of accessory muscles who is 91% to 97% saturated on 2 liters nasal cannula and whose blood pressure is ranging between 123/71 to 140/82. INTAKE AND OUTPUT: Over the past 24 hours has been recorded as 600 in and 1168 out for a negativity of 568 mL. She has put out 68 mL from the chest tube and she still has the air leak from the right side, but not on the left. Weight today is 49.5 kg compared to 50.8 kg yesterday. RESPIRATORY: She has equal breath sounds on either side. Percussion notes are full to the diaphragm. CARDIAC: Without murmurs, clicks, gallops, or rubs. I cannot feel her PMI. S1 and S2 are normal. ABDOMEN: Soft and nontender. Bowel sounds are positive. There is no hepatomegaly. No CVA tenderness. EXTREMITIES: Show no pretibial edema. No calf tenderness. No differential swelling of the upper extremities. SKIN: Warm, dry, and perfused without cyanosis or mottling, including that of the nail beds and knees. NECK: Supple. There is no jugular venous distention. No subcutaneous emphysema. Trachea is midline. MOUTH: Shows the mucous membranes to be pink and moist. Lips and commisures are without lesions and no thrush. EYES: Show her pupils equal and reactive. Extraocular muscles are intact. Sclerae nonicteric. NEUROLOGIC: Shows II through XII intact. Normal gross motor, gross sensation intact. Gait is not tested. PSYCHIATRIC: Shows her to be awake, alert, and oriented x3 with appropriate mood and affect and conversational. LABORATORY DATA: Her white count today is 7.8 with hemoglobin and hematocrit of 9.7 and 31.1 respectively with a platelet count of 350,000. Electrolytes are normal with a BUN and creatinine of 23 and 0.96, calcium of 10.3 with a corresponding albumin of 2.9. She has been hypercalcemic all along when it is corrected and today's correction is above 11. AST and ALT are normal. IMAGING DATA: Her chest x-ray today after her procedure shows return of her pneumothorax and I will turn her suction back up to 40. She has increased subcutaneous emphysema laterally. Costophrenic angles are sharp. IMPRESSION: 1. Bilateral spontaneous pneumothoraces with acute respiratory failure now resolved with bilateral chest tubes. 2. Recurrent right pneumothorax with alveolopleural fistula. 3. Squamous cell carcinoma of the head, neck, and external ear status post extensive resection. 4. Squamous cell carcinoma of the lungs treated with chemotherapy and radiation. 5. Diffuse metastases of the kidneys, probably bone, and subcutaneous tissue. 6. Acute renal insufficiency secondary Toradol resolved. 7. Hypercalcemia secondary to metastatic disease. PLAN AND DISCUSSION: I have informed the patient that we could not isolate the bronchus. Therefore, I will have to take her to the operating room to do a talc pleurodesis. At the time, I will try and find the offending leaking area of the lung under insufflation and positive pressure ventilation with water in the chest so I know where to undertake the wedge resection.
--- NOTE | 2021-03-21 14:22 | RO ---
OPERATIVE NOTE DATE OF OPERATION: PREOPERATIVE DIAGNOSIS: Bronchopleural fistula. POSTOPERATIVE DIAGNOSIS: Bronchopleural fistula. PROCEDURE PERFORMED: Fiberoptic bronchoscopy with subsegmental bronchial occlusion. SURGEON: Renny Rick DO, [facility] [employer] HELPER: ANESTHESIA: PROCEDURE NOTE: The patient was seen and the procedure explained to the patient as well as the hospital complications pertaining thereto. A written and informed consent were obtained and placed in the chart. The patient was brought to the operative suite, placed under general anesthesia. When the anesthetic had had sufficient time to take effect, the bronchoscope was placed in through the endotracheal tube and into the trachea. The tom was felt to be sharp. The airways of the right and left lung were examined in a subsegmental fashion for any evidence of tumor, ulcer, necrosis, vessel engorgement or mucosal irregularity. There was some hypertrophy with mucous pits. No endobronchial disease was appreciated. The bronchoscope was then retracted up into the endotracheal tube and a balloon occluder affixed to the bronchoscope using a wire. The balloon occluder was brought into the airways and multiple attempts were made to place the balloon occluder into the right upper lobe, the presumed site of bronchopleural fistula. With some difficulty, the occluder was able to be placed in the posterior segment of the right upper lobe. Inflation of the balloon was unable to reduce leak in the chest tube. The balloon occluder was then removed and a #4 Yogesh catheter was placed through the bronchoscope. Following this, subsegmental occlusion was performed of all segments of the right upper lobe as well as the superior segment of the right lower lobe and the right middle lobe. On none of these occasions did the bronchopleural fistula leak substantially effected by occlusion of the airway. The areas were then lavaged free of any remaining blood or secretions and the bronchoscope removed out through the patient's endotracheal tube. There were no complications and a post-procedural chest x-ray will be performed in the recovery room. The patient was in unchanged condition following the procedure. ELIAZAR
--- NOTE | 2021-03-21 14:31 | REP ---
INDICATION: R/O PNEUMO. COMPARISON: Comparison radiographs March 21, 2021 1:18 p.m... TECHNIQUE: Portable sitting AP radiograph time stamp 1:44 p.m.. FINDINGS: Two right chest tubes remain in place. Small right apical pneumothorax persists perhaps very slightly decreased in size. Extensive intrathoracic soft tissue emphysema is again noted on the right and to a lesser extent on the left. Infiltrate persists in the right base. No left-sided pneumothorax is seen. IMPRESSION: Small right-sided pneumothorax persists, perhaps slightly improved. Bilateral chest tubes. <Electronically signed by Diomedes Flores > 03/21/21 [id number]
[2021-03-21] MEDS: NORCO, ANEXSIA 5/325MG TABLET (HYDROcodone/ACETAMINOPHEN) PO PRN (14:42)
--- NOTE | 2021-03-21 14:48 | IPNPDOC ---
Date Seen The patient was seen on 03/21/21. Progress Note SUBJECTIVE: POD 0 balloon bronchoscopy and later wedge resection, talc pleurodesis of right lung. currently on RA, right chest tube to suction, left chest tube clamped. Updated oncologist Dr. Rossi today in great detail. OBJECTIVE: PHYSICAL EXAMINATION (done prior to OR procedures): VS: Please see below CONSTITUTIONAL: No acute distress, resting comfortably, AAO x 3 EYES: PERRLA, EOM intact HENT, MOUTH: large right frontal bone incision, well healing, moist mucous membranes NECK: SUPPLE, no JVD, no lymphadenopathy, no carotid bruit CV: sinus rhythm, S1S2 normal, no murmurs/rubs/gallops CHEST: left anterior chest tube to bedside canister no suction, right chest tube to cannister to suction. right upper chest port RESPIRATORY: decreased breath sounds on right upper lung, improved aeration on left lung, no rales/rhonchi/wheezes GI: RLQ nodule felt on exam, BS positive in 4 quadrants, soft, nontender, nondistended, no rebound or guarding : Deferred MUSCULOSKELETAL: Normal ROM. No cyanosis, clubbing, swelling, joint deformity, extremity edema INTEGUMENTARY: forehead/right temp lobe incision- appears well healing, clean described above otherwise other cranial scars appear well healed. No rashes, no lesions, no erythema NEUROLOGIC: Right side facial droop- chronic, no new focal deficits, strength 5/5 in all extremities PSYCHIATRIC: Mood and affect are normal LABORATORY DATA: Please see below MICROBIOLOGY: BCx x 4 sets: NG to date Resp panel: neg Sputum culture ordered, not able to be provided by patient IMAGING: CXR 03/21/21 (after OR): Small right-sided pneumothorax persists, perhaps slightly improved. Bilateral chest tubes. CXR 03/21/21 (prior to OR this AM): Cardiomediastinal silhouette is unchanged. The thoracotomy tubes are unchanged. Right-sided hydropneumothorax appears decreased. Patchy right lower lung field opacities are slightly decreased. No new abnormal opacities have developed. There is no change in the osseous structures. The tip of the MediPort device remains in the superior vena cava. CXR 03/20/21: Significantly worsened right hydropneumothorax and increased subcutaneous emphysema with mild contralateral mediastinal shift noted. CXR 03/19/21: 1. No significant change from prior examination. Continued pleuroparenchymal changes (right greater than left) and small right apical pneumothorax. 2. No obvious new acute process appreciated. Abd XR 03/19/21: Nonspecific avascular nodule in the subcutaneous tissue. Differential includes but is not limited to lipoma. Clinical/historical correlation is recommended. CXR 03/18/21: Bilateral chest tubes in place with bilateral small apical pneumothorax collecti ons. Infiltrate in the right mid lung zone and right base persists unchanged. CT chest 03/17/21: Bilateral chest tubes with successful reinflation of both lungs. Small bilateral pleural effusions. Bilateral pneumothoraces are associated with numerous thin walled cavitary nodules. Cystic pulmonary metastatic disease is the most likely possibility given the patient's history. Benign metastasized in leiomyoma could be considered as well. Patchy infiltrates are seen in the right upper lobe and right lower lobe as well consistent with pneumonia. CXR taken s/p bilateral chest tube placement: 1. Near complete re-expansion to the bilateral pneumothoraces with mild basilar atelectasis (right greater than left). 2. Underlying chronic interstitial changes. CT chest prior to chest tube placements: Large bilateral pneumothoraces with parenchymal changes as described above. CT head: There is evidence of recent resection, right temporal area with tissue loss and pneumocephalus in the resection cavity. There is also pneumocephalus over the right hemisphere with evidence of a right frontal craniotomy. The craniotomy flap in position over the right frontal region. No hemorrhage. There is minimal subdural collection over the right frontal area, measures perhaps 2-3 mm. There is mild [id number] midline shift. Ventricular size within normal limits. Paranasal sinuses are clear. The right mastoid is opacified, the left is fully aerated. 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 PLAN: Acute hypoxic and hypercarbic respiratory failure 2/2 to bilateral pneumothoraces likely 2/2 to metastatic cystic pulmonary disease -POD 0 balloon bronchoscopy and later wedge resection, talc pleurodesis of right lung -Post-op saturating well on RA -WBC no wnl, afebrile -No suction on left chest tube, right chest tube to suction -C/w chest tubes, O2 supplementation, pain control, IS Q2 hrs while awake, levofloxacin PO -Micro above, f/u sputum cx if one is able to be provided -Dr. Carrillo (CT surgery) following closely, please refer to most recent note HCAP (recently was treated for inpatient PNA, multiple hospitalizations over past several months) -WBC wnl, afebrile, not thought to be PCP with LDH normal -Procalcitonin >0.3 -C/w levofloxacin PO Minimal subdural collection over the right frontal area, measures perhaps 2-3 mm. (seen on CT head), midline shift mentioned above -S/p right sided craniotomy for approach to anterior fossa skull base, para cranial flap harvest, repair of dural defect, frontal sinus cannulization and repair, partial remover of skull tumor 03/05/21. This was done for pneumocephalus, frontal bone metastasis status post radiation to skull tumor. -CT head done on admission above. Abnormal findings on this CT discussed with Dr. Morales (neurosurgery) at [facility] over phone consultation on 03/16/21. He states this is likely normal findings s/p neurosurgery. States it can take several weeks for blood and air to be reabsorbed. -Patient is currently AAOx 3, no new focal deficits, no n/v currently after resolution of respiratory issue -Continue to monitor and if s/s increase, occur suspicious for incr intracranial pressure, bleed then to address immediately -Will need to f/u with neurosurgery as o/p as previously scheduled. 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 abdomen) diagnosed 01/2020, s/p chemotherapy, radiation -S/p radiation, chemotherapy, discussing immunotherapy recently per patient -Follows closely with oncology/radiation specialists -Most recently concern has been for ? kidney metastasis -[facility] records in chart -Updated patient's adult caregiver (Dr. Rossi, [facility] , ) this afternoon in great detail Chronic pain questionably secondary to back metastasis -No documented vertebral mets -C/w pain regimen GI px -PPI DVT px -Heparin SC. If patient will be needing boluses or therapeutic dosing at any point this hospitalization, do not right away and consider reevaluation of subdural collection in frontal area seen on CT head. Resolved: Hypertensive urgency Hypercalcemia likely 2/2 to metastatic disease DARIAN likely 2/2 to toradol use DISPOSITION: PCU status. CT surg following closely daily. Updated oncologist as discussed above. PT/OT when appropriate. Plan is discharge home when medically improved. VS, I&O, 24H, Fishbone Vital Signs/I&O Vital Signs Date Time Temp Pulse Resp B/P (MAP) Pulse Ox O2 Delivery O2 Flow Rate FiO2 03/21/21 14:06 99.3 107 18 147/76 (99) 95 Room Air 03/21/21 13:51 3.0 03/16/21 14:23 100 I&O- Last 24 Hours up to 6 AM 03/21/21 06:00 Intake Total 600 ml Output Total 1477 ml Balance -877 ml Laboratory Data 24H LABS Laboratory Tests 2 03/21/21 04:57: Nucleated Red Blood Cells % (auto) 0.0, Anion Gap 7L, Glomerular Filtration Rate > 60.0, Calcium Level 10.3H, Total Bilirubin 0.3, Aspartate Amino Transf (AST/SGOT) 30, Alanine Aminotransferase (ALT/SGPT) 42, Alkaline Phosphatase 389H, Total Protein 6.4, Albumin 2.9L, Albumin/Globulin Ratio 0.8L CBC/BMP Laboratory Tests 03/21/21 04:57 Microbiology Microbiology 03/16/21 Blood Culture - Final, Complete NO GROWTH AFTER 5 DAYS 03/16/21 Blood Culture - Final, Complete NO GROWTH AFTER 5 DAYS 03/16/21 Respiratory Virus Panel (PCR) (PERI) - Final, Complete 03/16/21 Blood Culture - Final, Complete NO GROWTH AFTER 5 DAYS 03/16/21 Blood Culture - Final, Complete NO GROWTH AFTER 5 DAYS Shirin Hernandez MD Mar 21, 2021 14:48
[2021-03-22] VITALS: BP 118/67
[2021-03-22] MEDS: LEVALBUTEROL 1.25 MG/0.5 ML CONCENTRATE NEB NEB SCH ×4 (02:00→20:00)
[2021-03-22 04:00] VITALS: BP 130/79
[2021-03-22] MEDS: LevoFLOXacin 250 MG TABLET PO SCH (05:47)
[2021-03-22] MEDS: NORCO, ANEXSIA 5/325MG TABLET (HYDROcodone/ACETAMINOPHEN) PO PRN ×3 (06:14→19:29)
[2021-03-22 06:18] LABS: MEAN CORPUSCULAR HEMOGLOBIN 29.3 pg (27.0-33.0); MEAN CORPUSCULAR VOLUME 94.5 fl (80.0-96.0); PLATELET COUNT, AUTOMATED 318 10^3/uL (150-450); RED BLOOD COUNT 3.07 10^6/uL (4.00-5.40); WHITE BLOOD COUNT 7.6 10^3/uL (4.0-10.0)
[2021-03-22 07:09] LABS: ALBUMIN 2.6 GM/DL (3.2-5.2); ALT/SGPT 29 U/L (12-78); BILIRUBIN,TOTAL 0.3 MG/DL (0.2-1.0); BLOOD UREA NITROGEN 27 MG/DL (7-18); CALCIUM LEVEL 9.6 MG/DL (8.8-10.2); CARBON DIOXIDE LEVEL 29 MEQ/L (21-32); CHLORIDE LEVEL 104 MEQ/L (98-107); CREATININE FOR GFR 0.81 MG/DL (0.55-1.30); GLOMERULAR FILTRATION RATE > 60.0 (>45); GLUCOSE, FASTING 82 MG/DL (70-100); POTASSIUM SERUM 4.4 MEQ/L (3.5-5.1); SODIUM LEVEL 139 MEQ/L (136-145)
[2021-03-22 07:17] VITALS: BP 120/66
--- NOTE | 2021-03-22 08:39 | REP ---
INDICATION: when chest tube placed. COMPARISON: Comparison chest radiograph March 21, 2021 1:44 p.m.. TECHNIQUE: Two views obtained 7:49 a.m. on 22 March 2021... FINDINGS: The left apical chest tube is again noted unchanged. There is no visible left-sided pneumothorax. Left lung remains clear. On the right, the right apical chest tube appears to project more medially in the right lung apex than on yesterday's radiograph. There is a moderate hydropneumothorax on the right increased substantially from yesterday's chest x-ray with an air-fluid level in the right base. There is no mediastinal shift. Intercostal spaces may be a little widened on the right. There is soft tissue emphysema along the right lateral chest wall. A right-sided Xvgyuy-V-Kavb catheter is again noted. IMPRESSION: Today's chest x-ray shows a moderate right-sided hydropneumothorax increased from yesterday's radiograph. Bilateral chest tubes remain in place.. <Electronically signed by Diomedes Flores > 03/22/21 0821
[2021-03-22] MEDS: DOCUSATE SODIUM 100MG CAPSULE PO SCH ×2 (09:21→20:22)
[2021-03-22] MEDS: PANTOPRAZOLE 40MG TAB (PROTONIX) PO SCH (09:21)
[2021-03-22] MEDS: MOM 30ML SUSPENSION UDC PO SCH (09:22)
[2021-03-22 11:27] VITALS: BP 119/71
--- NOTE | 2021-03-22 13:55 | IPNPDOC ---
Text Note Date of Service The patient was seen on 03/22/21. NOTE SUBJECTIVE: -Had bronchoscopy yesterday but could not isolate bronchus, having leaks bilaterally at this time. Dr. Carrillo had been planning for talc pleurodesis. -No issues overnight OBJECTIVE: VS: Please see below CONSTITUTIONAL: No acute distress, resting comfortably, AAO x 3 EYES: PERRLA, EOM intact HENT, MOUTH: large right frontal bone incision, well healing, moist mucous membranes NECK: SUPPLE, no JVD, no lymphadenopathy, no carotid bruit CV: sinus rhythm, S1S2 normal, no murmurs/rubs/gallops CHEST: left anterior chest tube to gravity and right chest tube to suction. right upper chest port RESPIRATORY: decreased breath sounds on right cr upper lung field, satisfactory aeration on left lung, no rales/rhonchi/wheezes GI: BS positive in 4 quadrants, soft, nontender, nondistended, no rebound or guarding SKIN: forehead/right temp lobe incision healing well, clean described above otherwise other cranial scars appear well healed. No rashes, no lesions, no erythema NEUROLOGIC: Right side facial droop- chronic, no new focal deficits, strength 5/5 in all extremities PSYCHIATRIC: Mood and affect are normal LABORATORY DATA: WBC 7.6 Hgb 9 Platelets 318 Na 139 K 4.4 Cr 0.81 MICROBIOLOGY: BCx x 4 sets: NG to date Resp panel: neg Sputum culture ordered, not able to be provided by patient IMAGING: CXR 03/21/21 (after OR): Small right-sided pneumothorax persists, perhaps slightly improved. Bilateral chest tubes. CXR 03/21/21 (prior to OR this AM): Cardiomediastinal silhouette is unchanged. The thoracotomy tubes are unchanged. Right-sided hydropneumothorax appears decreased. Patchy right lower lung field opacities are slightly decreased. No new abnormal opacities have developed. There is no change in the osseous structures. The tip of the MediPort device remains in the superior vena cava. CXR 03/20/21: Significantly worsened right hydropneumothorax and increased subcutaneous emphysema with mild contralateral mediastinal shift noted. CXR 03/19/21: 1. No significant change from prior examination. Continued pleuroparenchymal changes (right greater than left) and small right apical pneumothorax. 2. No obvious new acute process appreciated. Abd XR 03/19/21: Nonspecific avascular nodule in the subcutaneous tissue. Differential includes but is not limited to lipoma. Clinical/historical correlation is recommended. CXR 03/18/21: Bilateral chest tubes in place with bilateral small apical pneumothorax collections. Infiltrate in the right mid lung zone and right base persists unchanged. CT chest 03/17/21: Bilateral chest tubes with successful reinflation of both lungs. Small bilateral pleural effusions. Bilateral pneumothoraces are associated with numerous thin walled cavitary nodules. Cystic pulmonary metastatic disease is the most likely possibility given the patient's history. Benign metastasized in leiomyoma could be considered as well. Patchy infiltrates are seen in the right upper lobe and right lower lobe as well consistent with pneumonia. CXR taken s/p bilateral chest tube placement: 1. Near complete re-expansion to the bilateral pneumothoraces with mild basilar atelectasis (right greater than left). 2. Underlying chronic interstitial changes. CT chest prior to chest tube placements: Large bilateral pneumothoraces with parenchymal changes as described above. CT head: There is evidence of recent resection, right temporal area with tissue loss and pneumocephalus in the resection cavity. There is also pneumocephalus over the right hemisphere with evidence of a right frontal craniotomy. The craniotomy flap in position over the right frontal region. No hemorrhage. There is minim al subdural collection over the right frontal area, measures perhaps 2-3 mm. There is mild cystz-sa-sceo midline shift. Ventricular size within normal limits. Paranasal sinuses are clear. The right mastoid is opacified, the left is fully aerated. 03/22 CXR: The left apical chest tube is again noted unchanged. There is no visible left- sided pneumothorax. Left lung remains clear. On the right, the right apical chest tube appears to project more medially in the right lung apex than on yesterday's radiograph. There is a moderate hydropneumothorax on the right increased substantially from yesterday's chest x-ray with an air- fluid level in the right base. There is no mediastinal shift. Intercostal spaces may be a little widened on the right. There is soft tissue emphysema along the right lateral chest wall. A right-sided Dwdegl-V-Rkif catheter is again noted. IMPRESSION: Today's chest x-ray shows a moderate right-sided hydropneumothorax increased from yesterday's radiograph. Bilateral chest tubes remain in place. 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 PLAN: Acute hypoxic and hypercarbic respiratory failure 2/2 to bilateral pneumothoraces likely 2/2 to metastatic cystic pulmonary disease -POD 1 balloon bronchoscopy -WBC no wnl, afebrile -No suction on left chest tube, right chest tube to suction -C/w chest tubes, O2 supplementation, pain control, IS Q2 hrs while awake, levofloxacin PO ending 03/23 -Micro above, f/u sputum cx if one is able to be provided -Dr. Carrillo (CT surgery) following closely, please refer to most recent note NO evidence of HCAP thisd admission(recently was treated for inpatient PNA, multiple hospitalizations over past several months) -WBC wnl, afebrile, LDH normal -Procalcitonin >0.3 -DC levofloxacin PO Minimal subdural collection over the right frontal area, measures perhaps 2-3 mm. (seen on CT head), midline shift mentioned above -S/p right sided craniotomy for approach to anterior fossa skull base, para cranial flap harvest, repair of dural defect, frontal sinus cannulization and repair, partial remover of skull tumor 03/05/21. This was done for pneumocephalus, frontal bone metastasis status post radiation to skull tumor. -CT head done on admission above. Abnormal findings on this CT discussed with Dr. Morales (neurosurgery) at [facility] over phone consultation on 03/16/21. He states this is likely normal findings s/p neurosurgery. States it can take several weeks for blood and air to be reabsorbed. -Patient is currently AAOx 3, no new focal deficits, no n/v currently after resolution of respiratory issue -Continue to monitor and if s/s increase, occur suspicious for incr intracranial pressure, bleed then to address immediately -Will need to f/u with neurosurgery as o/p as previously scheduled. 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 abdomen) diagnosed 01/2020, s/p chemotherapy, radiation -S/p radiation, chemotherapy, discussing immunotherapy recently per patient -Follows closely with oncology/radiation specialists -Most recently concern has been for ? kidney metastasis -[facility] records in chart -Dr. Hernandez updated patient's oncologist (Dr. Rossi, [facility] , ) on 03/21 Chronic pain questionably secondary to back metastasis -No documented vertebral mets -C/w pain regimen GI px -PPI DVT px -Heparin SC. If patient will be needing boluses or therapeutic dosing at any point this hospitalization, do not right away and consider reevaluation of subdural collection in frontal area seen on CT head. Resolved: Hypertensive urgency Hypercalcemia likely 2/2 to metastatic disease DARIAN likely 2/2 to toradol use DISPOSITION: PCU status. CT surg following closely daily. Updated oncologist as discussed above. PT/OT when appropriate. Plan is discharge home when medically improved. VS,Fishbone, I+O VS, Fishbone, I+O Laboratory Tests 03/22/21 06:00 Vital Signs Date Time Temp Pulse Resp B/P (MAP) Pulse Ox O2 Delivery O2 Flow Rate FiO2 03/22/21 07:17 98.1 108 18 120/66 (84) 98 Nasal Cannula 3.0 03/16/21 14:23 100 I&O- Last 24 Hours up to 6 AM 03/22/21 06:00 Intake Total 1380 ml Output Total 2114 ml Balance -734 ml LIZETTE DOBSON MD Mar 22, 2021 09:44
--- NOTE | 2021-03-22 14:41 | IPN ---
PROGRESS NOTE DATE: 03/22/2021 Ms. Argueta is doing well after the attempted occlusive bronchoscopy yesterday. She is breathing well. I have extensively explained to her what we did yesterday and why it probably failed secondary to most likely collateral ventilation. We therefore discussed undertaking a talc pleurodesis and wedge resection, and she is willing to proceed with that, and we will do that tomorrow. Her vital signs show a maximum temperature of 98.1 with a heart rate that ranges between 92-108 in a sinus rhythm. Respiratory rate of 13-19 without the use of accessory muscles, and she is 95%-98% saturated on 3 liters nasal cannula. Blood pressure is ranging between 118/67 to 130/69. Her intake and output for the past 24 hours has been recorded as 1020 in and 2316 out, for a negativity of 1296 mL. She has put out 61 mL from the right chest tube and 5 from the left chest tube. There is no air leak in the left. Weight today is 50.3 kg today compared to 49.5 kg yesterday. PHYSICAL EXAMINATION: She has equal breath sounds on either side with some scattered rhonchi. Percussion note is full to the diaphragm. Cardiac exam is without murmurs, clicks, gallops, or rubs. I cannot feel her point of maximal impulse (PMI). S1 and S2 are normal. Abdomen is soft and nontender. Bowel sounds are positive. There is no hepatomegaly. No costovertebral angle (CVA) tenderness. Extremities show no pretibial edema, no calf tenderness, no differential swelling of the upper extremities. Skin is warm, dry, and perfused without cyanosis or mottling, including that of the nailbeds and knees. Neck is supple. There is no jugular venous distention. No subcutaneous emphysema. Trachea is midline. Mouth shows the mucous membranes to be pink and moist. Lips and commissures without lesions. No thrush. Eyes show her pupils to be equal and reactive. Extraocular motion intact. Sclerae anicteric. Neurologic shows II-XII intact. Normal gross motor, gross sensation intact. Gait is not tested. Psychiatric shows her to be awake, alert, and oriented times three with appropriate mood and affect and conversational. Her white count today is 7.6 with a hemoglobin and hematocrit of 9.0 and 29.0. Platelet count is 318 and stable. Chemistries today showed normal electrolytes with a BUN and creatinine of 27 and 0.81. Calcium is 9.6 with an albumin of 2.6. Her chest x-ray shows residual pneumothorax in the lower portion of the right hemithorax. Otherwise, her chest is expanded to the chest wall. I see no infiltrates. IMPRESSION: 1. Bilateral subcutaneous pneumothorax with acute respiratory therapy, now resolved with bilateral chest tubes. 2. 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 3. 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 4. Squamous cell carcinoma of the lungs, treated with chemotherapy and radiation. 5. Diffuse metastases to the kidneys and probably bone and subcutaneous tissue. 6. Acute renal insufficiency, resolved, secondary to Toradol. 7. Hypercalcemia secondary to metastatic disease. PLAN AND DISCUSSION: As noted above, I will take her to the operating room to undertake a talc pleurodesis and wedge resection tomorrow. My presumption is that she is leaking from the cupula, as I see two cysts that are abutting the pleura on the CT scan. I will look for positive proof of leaking by insufflating the lungs under water and under insufflation. I have explained to her the risks and benefits of the procedure, including mortalities, infections, bleeding, and continued air leak. She understands and is willing to proceed. Conversation as held with a friend on her speaker phone.
[2021-03-22 16:06] VITALS: BP 129/61
[2021-03-22 20:00] VITALS: BP 132/67
[2021-03-23] VITALS: BP 110/63
[2021-03-23] MEDS: LEVALBUTEROL 1.25 MG/0.5 ML CONCENTRATE NEB NEB SCH ×4 (02:00→20:00)
[2021-03-23] MEDS: NORCO, ANEXSIA 5/325MG TABLET (HYDROcodone/ACETAMINOPHEN) PO PRN ×2 (03:34→14:08)
[2021-03-23 03:55] VITALS: BP 144/81
[2021-03-23 05:27] LABS: BASO % 0.1 % (0.0-1.0); EOS # 0.2 10^3/uL (0.0-0.5); EOS % 2.9 % (0.0-3.0); HEMATOCRIT 29.3 % (36.0-47.0); HEMOGLOBIN 9.2 g/dl (12.0-15.5); LYMPH # 0.5 10^3/uL (1.5-5.0); MEAN CORPUSCULAR HEMOGLOBIN 29.5 pg (27.0-33.0); MEAN CORPUSCULAR HGB CONC 31.4 g/dl (32.0-36.5); MEAN CORPUSCULAR VOLUME 93.9 fl (80.0-96.0); MONO # 0.6 10^3/uL (0.0-0.8); MONO % 7.9 % (2.0-8.0); NEUTROPHILS # 6.5 10^3/uL (1.5-8.5); NEUTROPHILS % 82.6 % (36.0-66.0); PLATELET COUNT, AUTOMATED 308 10^3/uL (150-450); RED BLOOD COUNT 3.12 10^6/uL (4.00-5.40); WHITE BLOOD COUNT 7.9 10^3/uL (4.0-10.0)
[2021-03-23 05:56] LABS: ALBUMIN 2.7 GM/DL (3.2-5.2); ALT/SGPT 24 U/L (12-78); BILIRUBIN,TOTAL 0.3 MG/DL (0.2-1.0); BLOOD UREA NITROGEN 23 MG/DL (7-18); CARBON DIOXIDE LEVEL 32 MEQ/L (21-32); CHLORIDE LEVEL 104 MEQ/L (98-107); CREATININE FOR GFR 0.78 MG/DL (0.55-1.30); GLOMERULAR FILTRATION RATE > 60.0 (>45); GLUCOSE, FASTING 93 MG/DL (70-100); POTASSIUM SERUM 4.2 MEQ/L (3.5-5.1); SODIUM LEVEL 139 MEQ/L (136-145)
[2021-03-23 08:00] VITALS: BP 142/76
[2021-03-23] MEDS: MOM 30ML SUSPENSION UDC PO SCH (09:00)
[2021-03-23] MEDS: PANTOPRAZOLE 40MG TAB (PROTONIX) PO SCH (09:15)
[2021-03-23] MEDS: DOCUSATE SODIUM 100MG CAPSULE PO SCH ×2 (09:15→20:24)
--- NOTE | 2021-03-23 09:33 | REP ---
INDICATION: when chest tube placed. COMPARISON: Comparison chest x-ray 22 March 2021. TECHNIQUE: Two views.. FINDINGS: Left apical chest tube remains in place. No left-sided pneumothorax or infiltrate is seen. There is a moderate to large right-sided pneumothorax noted. A right anterior chest tube is seen changed in position compared to yesterday's radiograph. The right lung is largely collapsed. There is an air-fluid level in the base. Extra thoracic soft tissue gas is seen. A right internal jugular Ebvpjb-I-Ooxs catheter is seen in place. 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 Right chest tube in place. Right lung shows significant collapse.. <Electronically signed by Diomedes Flores > 03/23/21 0945
--- NOTE | 2021-03-23 11:59 | IPN ---
PROGRESS NOTE DATE: 03/23/2021 SUBJECTIVE: My intention was to bring Mrs. Argueta to the operating room to undertake a talc pleurodesis and a wedge resection. However, my quandary still evelio as to where she was leaking and if I could detect that leak at operation. Furthermore, she has received all of her cancer care at [facility]. Last night, I therefore came in and we discussed therapeutic options for her regarding where and when to treat her. As she has received all of her cancer care at [facility], including very extensive cerebral and head and neck surgery, we both agreed that it would be best that she return to [place] to take care of this continued bronchopleural fistula. I did call [place] yesterday and we are now awaiting a bed for her. I think the most appropriate service would be interventional pulmonology to see if they can figure out better than we can as to which bronchus is leaking, which will either guide them with bronchial occlusion or eventual wedge resection with talc pleurodesis. OBJECTIVE: VITAL SIGNS: Show a T-max of 98.8 with a heart rate that ranges between 86 and 104 in sinus rhythm. Respiratory rate of 19 to 22 without the use of accessory muscles who is 91% to 98% saturated on 1 liter nasal cannula. Her blood pressure is ranging between 142/76 to 110/.63. INTAKE AND OUTPUT: Over the past 24 hours has been recorded as 600 in and 620 out for near equality. She has put 20 mL out the chest tube and there is still an air leak. RESPIRATORY: She has equal breath sounds on either side. I hear no wheezes, rhonchi, or rales. CARDIAC: Without murmurs, clicks, gallops, or rubs. I cannot feel her PMI. S1 and S2 are normal. ABDOMEN: Soft and nontender. Bowel sounds are positive. There is no hepatomegaly. No CVA tenderness. EXTREMITIES: Show no pretibial edema. No calf tenderness. No differential swelling of the upper extremities. SKIN: Warm, dry, and perfused without cyanosis or mottling, including that of the nail beds and knees. NECK: Supple. There is no jugular venous distention. No subcutaneous emphysema. Trachea is midline. MOUTH: Shows the mucous membranes to be pink and moist. Lips and commisures are without lesions and no thrush. EYES: Show her pupils equal and reactive. Extraocular muscles are intact. Sclerae nonicteric. NEUROLOGIC: Shows II through XII intact. Normal gross motor, gross sensation intact. Gait is not tested. PSYCHIATRIC: Shows her to be awake, alert, and oriented x3 with appropriate mood and affect and conversational. LABORATORY DATA: Her white count today is 7.9 with a hemoglobin and hematocrit of 9.2 and 29.3 respectively. Platelet count is 308,000. Differential shows 82% neutrophils, 6% lymphocytes, and 7% monocytes. There are no immature forms and no toxic granulations. Her electrolytes are normal with a BUN and creatinine of 23 and 0.78. Calcium is 10.0 with a corresponding albumin of 2.7, which makes her corrected calcium in the hypercalcemic range. IMAGING DATA: Her chest x-ray shows an air fluid level at the bottom of the right hemithorax. There is subcutaneous emphysema in the right hemithorax. There still looks to be an unresolved residual airspace inferiorly. I seen o infiltrates. IMPRESSION: 1. Bilateral spontaneous pneumothorax with acute respiratory failure now resolved with bilateral chest tubes. 2. 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 3. Squamous cell carcinoma of the head, neck, and external ear status post extensive resection. 4. Squamous cell carcinoma of the lungs treated with chemoradiation. 5. Diffuse metastases to kidneys and probably bone and subcutaneous tissue. 6. Acute renal insufficiency, resolved; secondary to Toradol. 7. Hypercalcemia secondary to metastatic disease. PLAN AND DISCUSSION: As noted above, I have made calls to [place] and we are now awaiting a bed for her.
[2021-03-23 12:00] VITALS: BP 142/76
--- NOTE | 2021-03-23 13:01 | IPNPDOC ---
Text Note Date of Service The patient was seen on 03/23/21. NOTE SUBJECTIVE: -No issues overnight -Cancelled plan for OR today for pleurodesis and wedge resection by Dr. Carrillo and Dr. Carrillo initiated request for transfer to [facility], pending bed availability OBJECTIVE: VS: Please see below CONSTITUTIONAL: No acute distress, resting comfortably, AAO x 3 EYES: PERRLA, EOM intact HENT, MOUTH: large right frontal bone incision, well healing, moist mucous membranes NECK: SUPPLE, no JVD, no lymphadenopathy, no carotid bruit CV: sinus rhythm, S1S2 normal, no murmurs/rubs/gallops CHEST: left anterior chest tube to gravity and right chest tube to suction. right upper chest port RESPIRATORY: decreased breath sounds on right cr upper lung field, satisfactory aeration on left lung, no rales/rhonchi/wheezes GI: BS positive in 4 quadrants, soft, nontender, nondistended, no rebound or guarding SKIN: forehead/right temp lobe incision healing well, clean described above otherwise other cranial scars appear well healed. No rashes, no lesions, no erythema NEUROLOGIC: Right side facial droop- chronic, no new focal deficits, strength 5/5 in all extremities PSYCHIATRIC: Mood and affect are normal LABORATORY DATA: WBC 7.9 Hgb 9.2 Platelets 308 Na 136 K 3.9 Cr 0.75 MICROBIOLOGY: BCx x 4 sets: NG to date Resp panel: neg Sputum culture ordered, not able to be provided by patient IMAGING: CXR 03/21/21 (after OR): Small right-sided pneumothorax persists, perhaps slightly improved. Bilateral chest tubes. CXR 03/21/21 (prior to OR this AM): Cardiomediastinal silhouette is unchanged. The thoracotomy tubes are unchanged. Right-sided hydropneumothorax appears decreased. Patchy right lower lung field opacities are slightly decreased. No new abnormal opacities have developed. There is no change in the osseous structures. The tip of the MediPort device remains in the superior vena cava. CXR 03/20/21: Significantly worsened right hydropneumothorax and increased subcutaneous emphysema with mild contralateral mediastinal shift noted. CXR 03/19/21: 1. No significant change from prior examination. Continued pleuroparenchymal changes (right greater than left) and small right apical pneumothorax. 2. No obvious new acute process appreciated. Abd XR 4/24/21: Nonspecific avascular nodule in the subcutaneous tissue. Differential includes but is not limited to lipoma. Clinical/historical correlation is recommended. CXR 03/18/21: Bilateral chest tubes in place with bilateral small apical pneumothorax alize ections. Infiltrate in the right mid lung zone and right base persists unchanged. CT chest 03/17/21: Bilateral chest tubes with successful reinflation of both lungs. Small bilateral pleural effusions. Bilateral pneumothoraces are associated with numerous thin walled cavitary nodules. Cystic pulmonary metastatic disease is the most likely possibility given the patient's history. Benign metastasized in leiomyoma could be considered as well. Patchy infiltrates are seen in the right upper lobe and right lower lobe as well consistent with pneumonia. CXR taken s/p bilateral chest tube placement: 1. Near complete re-expansion to the bilateral pneumothoraces with mild basilar atelectasis (right greater than left). 2. Underlying chronic interstitial changes. CT chest prior to chest tube placements: Large bilateral pneumothoraces with parenchymal changes as described above. CT head: There is evidence of recent resection, right temporal area with tissue loss and pneumocephalus in the resection cavity. There is also pneumocephalus over the right hemisphere with evidence of a right frontal craniotomy. The craniotomy flap in position over the right frontal region. No hemorrhage. There is minimal subdural collection over the right frontal area, measures perhaps 2-3 mm. There is mild [id number] midline shift. Ventricular size within normal limits. Paranasal sinuses are clear. The right mastoid is opacified, the left is fully aerated. 03/22 CXR: The left apical chest tube is again noted unchanged. There is no visible left- sided pneumothorax. Left lung remains clear. On the right, the right apical chest tube appears to project more medially in the right lung apex than on yesterday's radiograph. There is a moderate hydropneumothorax on the right increased substantially from yesterday's chest x-ray with an air- fluid level in the right base. There is no mediastinal shift. Intercostal spaces may be a little widened on the right. There is soft tissue emphysema along the right lateral chest wall. A right-sided [id number] catheter is again noted. IMPRESSION: Today's chest x-ray shows a moderate right-sided hydropneumothorax increased from yesterday's radiograph. Bilateral chest tubes remain in place. 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 PLAN: Acute hypoxic and hypercarbic respiratory failure 2/2 to bilateral pneumothoraces likely 2/2 to metastatic cystic pulmonary disease -POD 2 bronchoscopy -WBC no wnl, afebrile -Has bilateral chest tubes -O2 supplementation, pain control, IS Q2 hrs while awake, s/p levaquin? -Micro above, f/u sputum cx if one is able to be provided -Cancelled plan for OR today for pleurodesis and wedge resection by Dr. Carrillo and Dr. Carrillo initiated request for transfer to [facility], pending bed availability NO evidence of HCAP this admission(recently was treated for inpatient PNA, multiple hospitalizations over past several months) -WBC wnl, afebrile, LDH normal -Procalcitonin >0.3 -DC levofloxacin PO Minimal subdural collection over the right frontal area, measures perhaps 2-3 mm. (seen on CT head), midline shift mentioned above -S/p right sided craniotomy for approach to anterior fossa skull base, para cranial flap harvest, repair of dural defect, frontal sinus cannulization and repair, partial remover of skull tumor 03/05/21. This was done for pneumocephalus, frontal bone metastasis status post radiation to skull tumor. -CT head done on admission above. Abnormal findings on this CT discussed with Dr. Morales (neurosurgery) at [facility] over phone consultation on 03/16/21. He states this is likely normal findings s/p neurosurgery. States it can take several weeks for blood and air to be reabsorbed. -Patient is currently AAOx 3, no new focal deficits, no n/v currently after resolution of respiratory issue -Continue to monitor and if s/s increase, occur suspicious for incr intracranial pressure, bleed then to address immediately -Will need to f/u with neurosurgery as o/p as previously scheduled. 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 abdomen) diagnosed 01/2020, s/p chemotherapy, radiation -S/p radiation, chemotherapy, discussing immunotherapy recently per patient -Follows closely with oncology/radiation specialists -Most recently concern has been for ? kidney metastasis -[facility] records in chart -Dr. Hernandez updated patient's oncologist (Dr. Rossi, [facility] , ) on 03/21 Chronic pain questionably secondary to back metastasis -No documented vertebral mets -C/w pain regimen GI px -PPI DVT px -Heparin SC. If patient will be needing boluses or therapeutic dosing at any point this hospitalization, do not right away and consider reevaluation of subdural collection in frontal area seen on CT head. Resolved: Hypertensive urgency Hypercalcemia likely 2/2 to metastatic disease DARIAN likely 2/2 to toradol use DISPOSITION: PCU status. -Cancelled plan for OR today for pleurodesis and wedge resection by Dr. Carrillo and Dr. Carrillo initiated request for transfer to [facility], pending bed availability Updated oncologist as discussed above. VS,Fishbone, I+O VS, Fishbone, I+O Laboratory Tests 03/23/21 04:52 Vital Signs Date Time Temp Pulse Resp B/P (MAP) Pulse Ox O2 Delivery O2 Flow Rate FiO2 03/23/21 08:00 97.6 88 20 142/76 (98) 96 Nasal Cannula 97.6 88 I&O- Last 24 Hours up to 6 AM 03/23/21 06:00 Intake Total 560 ml Output Total 400 ml Balance 160 ml LIZETTE DOBSON MD Mar 23, 2021 09:15
[2021-03-23] MEDS: ACETAMINOPHEN TAB 650MG DOSE (2X325MG) PO PRN (15:12)
[2021-03-23 16:00] VITALS: BP 148/68
[2021-03-23] MEDS ORDERED: NORCO, ANEXSIA 5/325MG TABLET (HYDROcodone/ACETAMINOPHEN) PO PRN (16:00)
[2021-03-23] MEDS ORDERED: traMADol 50 MG TAB PO PRN (16:00)
--- NOTE | 2021-03-23 21:28 | DS.PDOC ---
Discharge Summary General Date of Admission Mar 16, 2021 at 08:23 Date of Discharge 03/23/2021 Primary Care Physician: UVALDO CARRION DO Attending Physician: LIZETTE DOBSON MD Specialist/Consultants Involve: JERONIMO JO MD Specialist/Consultants Involve Dr. Dany D.O., pulmonology Discharge Summary PROCEDURES PERFORMED DURING STAY: Bilateral chest tube placement, fiberoptic bronchoscopy was subsegmental bronchial occlusion mental bronchial occlusion ADMITTING DIAGNOSES: 1. Bilateral pneumothoraces. 2. Acute hypoxic and hypercarbic respiratory failure secondary to bilateral pneumothoraces 3. Hypertension urgency 4. Leukocytosis 5. Minimal subdural collection over the right frontal area seen on CT head 6. Metastatic squamous cell carcinoma of the ear requiring extensive resection of the external ear to the temporal bone and mandible DISCHARGE DIAGNOSES: 1. Acute hypoxic and hypercarbic respiratory failure secondary to bilateral pneumothoraces likely secondary to metastatic cystic pulmonary disease. 2. Minimal subdural collection of the right frontal area 3. Right lower quadrant nodule 4. Metastatic squamous cell carcinoma the right ear with extensive resection 5. Chronic pain secondary to metastasis 6. Leukocytosis, resolved COMPLICATIONS/CHIEF COMPLAINT: Abnormalxray. HISTORY OF PRESENT ILLNESS: Patient is a 65-year-old female with a past history of metastatic squamous cell carcinoma right ear that was diagnosed in January 2021 who presented to [facility] emergency Department on 03/16/2021 with increasing shortness of breath over the last week. Patient receives most of her care for her cancer in [place], [place]. When the patient arrived to the emergency department she was in moderate distress. Patient was tachycardic and had a saturation in the 60s on room air. Patient had imaging that was suspicious for bilateral pneumothoraces which a CT of the chest confirmed. Patient was transferred to the intensive care unit for bilateral chest tubes placed by [facility] surgery.. HOSPITAL COURSE: Patient had bilateral chest tubes placed upon arrival which did improve the patient's oxygenation. Patient did require critical care consultation during the procedure for the chest tube placement as patient desatted and did require bag mask ventilation. Once both chest tubes were in and both pneumothoraces resolved, patient's oxygen saturations did improve. Througho ut the hospitalization, the patient did remain stable with bilateral chest tubes. Patient did have infiltrates found on x-rays and CT scans at the beginning the patient's hospitalization. Patient was given a ceftriaxone and vancomycin initially and then switched to Levaquin. Patient had a fiberoptic bronchoscopy was subsegmental bronchial occlusion on 03/21/2021 however, they were unable to find the bronchial pleural leak as the leak did not change substantially with occlusion of any of the airways. Dr. Carrillo of thoracic surgery was planning on bringing the patient to the operating room however, according to his documentation, he is unsure if he be able to detect a leak in the right lung at the operation as the patient appears to have a alveolopleural fistula and he believes that the patient would be best served if the patient returns to her providers down at [facility] as interventional pulmonology should be better equipped to figure out which bronchus is leaking better than we are here at [facility]. Dr. Carrillo called down to [place] and Dr. Nelson excepted the patient for transfer. Patient is in agreement with the transfer. I discussed the risks and benefits of transfer with the patient and patient is in agreement to be transferred to [facility]. Patient currently has 2 chest tubes in with the left chest tube at waterseal in the right chest tube on suction at - 20 cm of water. Patient was resting comfortably when I went in the room to speak with her about her transfer and the bed becoming available. Patient was transferred on the evening of 03/23/2021 to [facility]. DISCHARGE MEDICATIONS: Please see below. ALLERGIES: Please see below. PHYSICAL EXAMINATION ON DISCHARGE: VITAL SIGNS: Please see below. General: Alert and oriented female who is laying in the bed when I walked into the room. Patient was resting comfortably and did not appear to be in any acute distress. HEENT: Large right frontal bone incision, well-healing, moist mucous membranes Neck: Supple with no lymphadenopathy Cardiac: Regular rate and rhythm, no murmurs, normal S1, normal S2 Pulm: Decreased breath sounds on the right especially the upper lung conde, no wheezes, rhonchus, or rales Abd: Nondistended, nontender to palpation, normal bowel sounds Ext: No edema bilateral lower extremities LABORATORY DATA: Please see below. IMAGING: Chest x-ray performed on 03/16/2021 was reported to show large bilateral pneumothoraces (right greater than left) A CT of the chest performed without contrast on 03/16/2021 was reported to show large bilateral pneumothoraces with parenchymal changes as described as lower lobe atelectasis along with partial collapse of the right lower lobe and a small pleural effusion (right greater than left) A chest x-ray performed on 03/16/2021 post chest tube placement was reported to show near complete reexpansion to the bilateral pneumothoraces with mild basilar atelectasis (right greater than left (underlying chronic interstitial changes. A CT of the head performed without contrast performed on 03/16/2021 was reported to show evidence of recent surgery, right temporal resection cavity in pneumocephalus as described. No hemorrhage. There is a minimal subdural collection over the right frontal area, measures perhaps 2-3 mm. A chest x-ray performed on 03/17/2021 was reported to show bilateral chest tubes in place. Tiny biapical pleural air collection persists. Infiltrate versus atelectasis right base and right perihilar region. A CT of the chest without contrast performed on 03/17/2021 was reported to show bilateral chest tubes with successful reinflation of both lungs. Small bilateral pleural effusions. Bilateral pneumothoraces are associated with numerous thin- walled cavitary nodules. Cystic pulmonary metastatic disease is the most likely possibility given the patient's history. Benign metastasized leiomyoma could be considered as well. Patchy infiltrates are seen in the right upper lobe and right lower lobe as well consistent with pneumonia. A chest x-ray performed on 03/18/2021 was reported to show bilateral chest tubes in place with bilateral small apical pneumothorax collections. Infiltrate in the right mid lung zone and right base persist unchanged. Chest x-ray performed on 03/19/2021 was reported to show no significant change from prior examination. Continue pleural parenchymal changes proceed right greater than left) disease and small right apical pneumothorax. No obvious no acute process appreciated. A limited ultrasound of the abdomen performed on 03/19/2021 was reported to show nonspecific avascular nodule in the subcutaneous tissue. Differential includes but is not limited to lipoma. Clinical/historical correlation is recommended. A chest x-ray performed on 03/20/2021 was reported to show significantly worsened right hydropneumothorax and increased subcutaneous emphysema with mild collateral mediastinal shift noted. A chest x-ray performed on 03/21/2021 was reported to show some improvement with the right-sided hydropneumothorax appearing decreased. A chest x-ray performed on 03/21/2021 was reported to show increasing extrathoracic soft tissue air. 4 cm right apical pneumothorax unchanged from a film done earlier today. Atelectasis and/or infiltrate right base. A chest x-ray performed on 03/21/2021 was reported to show small right sided pneumothorax persists, perhaps slightly improved. Bilateral chest tubes. A chest x-ray from 03/22/2021 was reported to show a moderate right-sided hydropneumothorax increased from yesterday's radiograph. Bilateral chest tubes remain in place. A chest x-ray performed on 03/23/2021 was reported to show findings consistent w ith bronchopleural fistula with persistent large right-sided hydropneumothorax. Right chest tube in place. Right lung shows significant collapse. PROGNOSIS: Fair ACTIVITY: As tolerated. DIET: Regular DISCHARGE PLAN: Transfer to [facility] for interventional pulmonology care DISCHARGE INSTRUCTIONS: 1. Continue following care as recommended by physicians at [facility].. DISCHARGE CONDITION: Stable. TIME SPENT ON DISCHARGE: Greater than 30 minutes. Vital Signs/I&Os Vital Signs Date Time Temp Pulse Resp B/P (MAP) Pulse Ox O2 Delivery O2 Flow Rate FiO2 03/23/21 20:24 17 03/23/21 16:42 Room Air 03/23/21 16:12 100 03/23/21 16:00 97.4 91 148/68 (94) 1.0 03/23/21 12:00 88 I&O- Last 24 Hours up to 6 AM 03/23/21 06:00 Intake Total 560 ml Output Total 400 ml Balance 160 ml Laboratory Data Labs 24H Laboratory Tests 2 03/23/21 04:52: Immature Granulocyte % (Auto) 0.5, Neutrophils (%) (Auto) 82.6H, Lymphocytes (%) (Auto) 6.0L, Monocytes (%) (Auto) 7.9, Eosinophils (%) (Auto) 2.9, Basophils (%) (Auto) 0.1, Neutrophils # (Auto) 6.5, Lymphocytes # (Auto) 0.5L, Monocytes # (Auto) 0.6, Eosinophils # (Auto) 0.2, Basophils # (Auto) 0.0, Nucleated Red Blood Cells % (auto) 0.0, Anion Gap 3L, Glomerular Filtration Rate > 60.0, Calcium Level 10.0, Total Bilirubin 0.3, Aspartate Amino Transf (AST/SGOT) 17, Alanine Aminotransferase (ALT/SGPT) 24, Alkaline Phosphatase 282H, Total Protein 6.0L, Albumin 2.7L, Albumin/Globulin Ratio 0.8L CBC/BMP Laboratory Tests 03/23/21 04:52 Microbiology Microbiology 03/16/21 Blood Culture - Final, Complete NO GROWTH AFTER 5 DAYS 03/16/21 Blood Culture - Final, Complete NO GROWTH AFTER 5 DAYS 03/16/21 Respiratory Virus Panel (PCR) (PERI) - Final, Complete 03/16/21 Blood Culture - Final, Complete NO GROWTH AFTER 5 DAYS 03/16/21 Blood Culture - Final, Complete NO GROWTH AFTER 5 DAYS Discharge Medications Scheduled Amoxicillin/Potassium Clav (Amox-Clav 875-125 mg Tablet) 1 Each Tablet, 1 TAB PO BID, (Reported) filled 03/07/21 for 10 days Scheduled PRN Benzonatate (Benzonatate) 100 Mg Capsule, 100 MG PO TID PRN for cou, (Reported) Hydrocodone/Acetaminophen (Hydrocodone-Acetamin 5-325 mg) 1 Each Tablet, 1 TAB PO Q4H PRN for PAIN, (Reported) Allergies Coded Allergies: poison prasanna extract (Verified Allergy, Unknown, rash, 03/16/21) GME ATTESTATION GME ATTESTATION My faculty preceptor for this patient encounter was physically present during the encounter and was fully available. All aspects of the patient interview, examination, medical decision making process, and medical care plan development were reviewed and approved by the faculty preceptor. The faculty preceptor is aware and concurs with the plan as stated in the body of this note and will attest to such by his/her cosignature. THIEN JARRETT DO Mar 23, 2021 21:28
== END 2021-03-23 21:30 | disposition short-term general hospital (02) | DRG 120 ==
LOC: EDBD 08:00 → M ED 08:00 → M ICU 08:23 → ENRESERV 08:26 → M PCU 03-19 15:42
PROVIDERS: ADMIT Internal Medicine; ATTEND Family Medicine
PROC: 0W9B00Z Drainage of Left Pleural Cavity with Drainage Device, Open Approach (ICD-10-PCS; 2021-03-16)
PROC: 0W9900Z Drainage of Right Pleural Cavity with Drainage Device, Open Approach (ICD-10-PCS; 2021-03-16)
PROC: 0B948ZZ Drainage of Right Upper Lobe Bronchus, Via Natural or Artificial Opening Endoscopic (ICD-10-PCS; 2021-03-21)
PROC: 0BJ08ZZ Inspection of Tracheobronchial Tree, Via Natural or Artificial Opening Endoscopic (ICD-10-PCS; 2021-03-21)
PROC: 0BL Respiratory System, Occlusion (ICD-10-PCS; principal; 2021-03-21 11:00)
DX: J93.83 Other pneumothorax (principal); J86.0 Pyothorax with fistula; J96.01 Acute respiratory failure with hypoxia; N17.9 Acute kidney failure, unspecified; C79.00 Secondary malignant neoplasm of unspecified kidney and renal pelvis; C79.2 Secondary malignant neoplasm of skin; C79.51 Secondary malignant neoplasm of bone; E83.52 Hypercalcemia; J96.02 Acute respiratory failure with hypercapnia; E46 Unspecified protein-calorie malnutrition; C79.89 Secondary malignant neoplasm of other specified sites; C34.92 Malignant neoplasm of unspecified part of left bronchus or lung; R29.810 Facial weakness; G89.3 Neoplasm related pain (acute) (chronic); I16.0 Hypertensive urgency; C44.222 Squamous cell carcinoma of skin of right ear and external auricular canal

== ENCOUNTER 2021-03-31 10:12 | Emergency (ER) | payer BC, OTHER ==
[~2021-03-31] VITALS: Ht 162.6 cm; Wt 53.6 kg
[~2021-03-31 10:12] MED LIST changes: +AMOX875T2 PO; +BENZ-18 PO; +HYDR-4571 PO; -PROHANCE 279.3MG/ML 15ML VIAL As Ordered ONE
--- NOTE | 2021-03-31 10:39 | REP ---
INDICATION: sob COMPARISON: 03/23/2021 TECHNIQUE: Portable AP view of the chest FINDINGS: There is a new acute moderate left pneumothorax of approximately 50% volume loss with mild contralateral mediastinal shift. Right hemithorax demonstrates diffuse pleuroparenchymal changes and superimposed right-sided acute process (including hydropneumothorax as well as possible element of pneumomediastinum) cannot be excluded. The cardiac silhouette is normal. [id number] identified with tip in the SVC. IMPRESSION: New left pneumothorax of approximately 50% volume loss with mild contralateral shift of the mediastinum. Extensive right-sided pleuroparenchymal changes may represent acute and or chronic change. <Electronically signed by Richard Beyer > 03/31/21 [id number]
[2021-03-31 11:03] LABS: HEMATOCRIT 30.8 % (36.0-47.0); HEMOGLOBIN 9.8 g/dl (12.0-15.5); MEAN CORPUSCULAR HEMOGLOBIN 29.3 pg (27.0-33.0); MEAN CORPUSCULAR HGB CONC 31.8 g/dl (32.0-36.5); MEAN CORPUSCULAR VOLUME 91.9 fl (80.0-96.0); PLATELET COUNT, AUTOMATED 387 10^3/uL (150-450); RED BLOOD COUNT 3.35 10^6/uL (4.00-5.40); WHITE BLOOD COUNT 11.9 10^3/uL (4.0-10.0)
[2021-03-31] MEDS ORDERED: MIDAZOLAM INJ 2MG/2ML VIAL (J2250 PER 1MG) IV STA ×3 (11:03→11:14)
[2021-03-31] MEDS ORDERED: LIDOCAINE 2% W/EPINEPHRINE 20ML VIAL **PRES FREE INJ ONE (11:05)
[2021-03-31] MEDS ORDERED: LIDOCAINE 1% MDV 20ML VIAL As Ordered ONE (11:08)
[2021-03-31 11:13] LABS: INR 1.04; PROTHROMBIN TIME 13.8 SECONDS (12.5-14.3)
[2021-03-31] MEDS ORDERED: NS 1,000 ML IV SCH (11:15)
--- NOTE | 2021-03-31 11:27 | REP ---
INDICATION: CP. COMPARISON: 03/17/2021. TECHNIQUE: CT chest performed without the use of intravenous contrast. Sagittal and coronal reconstruction images are performed. FINDINGS: There are multiple new bilateral pulmonary nodules, the largest measures 1 cm in diameter. Multiple bilateral cavitating lesions are seen with mild wall thickening. The largest is approximately 2 cm in diameter and is located on the left anteriorly and superiorly. There is a suture line in the right apex. There is a band of parenchymal opacity along the suture line. There is right lower lobe consolidation. There is mild patchy parenchymal opacity in the left lower lobe. There is a large pneumothorax bilaterally. There is a moderate to large amount of right pleural fluid and a small amount of left pleural fluid. There is mild air in the chest spann right greater than left. There is a right central venous catheter with the tip in the superior vena cava. There is no gross adenopathy. The heart is normal in size. There is moderate anterior pericardial fluid. Calcified granulomas are seen in the spleen. There is a thick-walled cystic lesion in the posterior upper pole of the left kidney measuring approximately 3.2 cm in diameter. This has increased in size since the prior study, likely infectious in etiology. Diffuse heterogeneous density is seen in the upper pole the right kidney is also suggesting inflammation/infection. IMPRESSION: Large bilateral pneumothoraces. Moderate to large amount of right pleural fluid and small amount of left pleural fluid. Moderate anterior pericardial fluid. Multiple new bilateral pulmonary nodules measuring up to 1 cm in diameter. Multiple bilateral parenchymal cavitary lesions demonstrating mild wall thickening. Thick-walled cystic lesion posterior upper pole left kidney has increased in size since the prior study likely infectious in etiology. There is also abnormal heterogeneous density in the upper pole the right kidney suggesting inflammation/infection. <Electronically signed by Moisés Carrillo > 03/31/21 1122
[2021-03-31 11:34] LABS: RSV AMPLIFICATION NEGATIVE (NEGATIVE)
[2021-03-31 11:38] LABS: BLOOD UREA NITROGEN 14 MG/DL (7-18); CARBON DIOXIDE LEVEL 29 MEQ/L (21-32); CHLORIDE LEVEL 100 MEQ/L (98-107); CREATININE FOR GFR 0.63 MG/DL (0.55-1.30); GLOMERULAR FILTRATION RATE > 60.0 (>45); GLUCOSE, FASTING 104 MG/DL (70-100); POTASSIUM SERUM 3.8 MEQ/L (3.5-5.1); SODIUM LEVEL 137 MEQ/L (136-145)
[2021-03-31 11:39] LABS: ALBUMIN 2.7 GM/DL (3.2-5.2); ALT/SGPT 35 U/L (12-78); BILIRUBIN,TOTAL 0.3 MG/DL (0.2-1.0); CALCIUM LEVEL 10.4 MG/DL (8.8-10.2); TOTAL PROTEIN 6.3 GM/DL (6.4-8.2)
[2021-03-31] MEDS ORDERED: METH-1164 (11:43)
[2021-03-31] MEDS ORDERED: GABA-1171 (11:43)
[2021-03-31] MEDS ORDERED: flumazeniL 0.5 MG/5 ML VIAL As Ordered ONE (12:03)
[2021-03-31] MEDS ORDERED: KETOROLAC 30 MG/ML 1ML VIAL IV ONE (12:30)
--- NOTE | 2021-03-31 12:46 | REP ---
INDICATION: s/p chest tube. COMPARISON: 03/31/2021, 10:21 a.m.. TECHNIQUE: Single portable AP view of the chest was performed. FINDINGS: There has been placement of right chest tube. The side port overlies the mid right hemithorax. The right pneumothorax seen on today's CT scan is not visualized radiographically on the current or comparison radiograph. There is a left pneumothorax visualized which is stable. Bilateral pleural effusions are unchanged. Parenchymal opacities on the right are unchanged. Heart and mediastinum are unchanged. Right central venous catheter again noted. IMPRESSION: Right chest tube has been placed, the side port is located in the mid right hemithorax..Otherwise no change since comparison radiograph. <Electronically signed by Moisés Carrillo > 03/31/21 [id number]
--- NOTE | 2021-03-31 12:53 | RO ---
OPERATIVE NOTE DATE OF OPERATION: 03/31/2021 PREOPERATIVE DIAGNOSIS: Recurrent right pneumothorax. POSTOPERATIVE DIAGNOSIS: Recurrent right pneumothorax. PROCEDURE: Insertion of right lateral chest tube. SURGEON: Dr. Marv Carrillo DESCRIPTION OF PROCEDURE: Under satisfactory moderate sedation achieved with 2 mg of Versed, patient was prepped and draped in the usual sterile fashion. An incision was made, and a tunnel was created in the chest inferiorly. A#20 chest tube was placed and connected to the Pleur-evac after securing it to the chest wall with #2 Tevdek suture. Patient tolerated the procedure well, and a chest x-ray showed the lung to be re-expanded to the chest wall. She is to be transported back down to [place], as she underwent a talc pleurodesis recently to that side.
[2021-03-31 13:28] VITALS: BP 159/89
== END 2021-03-31 13:36 | disposition short-term general hospital (02) ==
LOC: M ED 10:12
DX: J93.9 Pneumothorax, unspecified (principal); R91.8 Other nonspecific abnormal finding of lung field; J90 Pleural effusion, not elsewhere classified; I31.3 Pericardial effusion (noninflammatory); J98.4 Other disorders of lung; N28.1 Cyst of kidney, acquired; R93.421 Abnormal radiologic findings on diagnostic imaging of right kidney; I10 Essential (primary) hypertension; G89.29 Other chronic pain; M54.9 Dorsalgia, unspecified; Z85.828 Personal history of other malignant neoplasm of skin; Z87.891 Personal history of nicotine dependence; Z91.89 Other specified personal risk factors, not elsewhere classified
CPT/HCPCS: 32551; 71045; 71250; 80053; 85027; 85610; 87631; 96361; 96374; 99285; J1885; J2250